=== PATIENT | female | born 1935 | race Caucasian/White ===

== ENCOUNTER → 2024-06-21 15:38 | Outpatient (REF) | payer OTHER, SELFPAY | LOC: RAD 15:38 | PROVIDERS: ATTENDING PHYSICIAN Internal Medicine; FAMILY PHYSICIAN Internal Medicine | DX: M48.062 Spinal stenosis, lumbar region with neurogenic claudication (principal) | CPT/HCPCS: 72100 ==

== ENCOUNTER → 2024-07-10 15:16 | Outpatient (REF) | payer OTHER, SELFPAY | LOC: PAVMRI 15:16 | PROVIDERS: ATTENDING PHYSICIAN Internal Medicine; FAMILY PHYSICIAN Internal Medicine | DX: M48.062 Spinal stenosis, lumbar region with neurogenic claudication (principal) | CPT/HCPCS: 72148 ==

== ENCOUNTER 2024-09-15 17:33 | Emergency (ER) | payer OTHER, SELFPAY ==
[2024-09-15 17:46] VITALS: BP 124/59
[2024-09-15 19:38] VITALS: BP 121/66
[2024-09-15 19:39] VITALS: BMI 36.1
[2024-09-15 20:00] VITALS: BP 104/73
[2024-09-15 20:08] LABS: Urine Albumin 3+ (Neg - Trace); Urine Bilirubin Negative (Negative); Urine Character Slightly Cloudy (Clear); Urine Color Yellow; Urine Glucose Negative (Negative); Urine Ketone 1+ (Negative); Urine Leukocyte 3+ (Negative); Urine Nitrite Negative (Negative); Urine Occult Blood 4+ (Negative); Urine Urobilinogen Negative (Neg - 1+)
[2024-09-15 20:23] LABS: Urine Squamous Cell 0-2 /LPF (Few)
[2024-09-15 20:24] LABS: Urine Bacteria Many (Negative); Urine Red Blood Cell 21-25 /HPF (0-2); Urine White Cell >100 /HPF (0-5)
--- NOTE | 2024-09-15 20:47 | ED.GENMED ---
History of Present Illness
General
Chief Complaint: Urinary Symptoms
Source: patient
Exam Limitations: none
Time Seen by Provider: 09/15/24 18:52
History of Present Illness
History of Present Illness:
Patient to ED with complaint of painful urination x 4 days. Brought to ED by daughter for eval. Denies fever/chills. History of frequent UTi's
Past History
Past History
ED Past Medical History: GERD, HTN, Hypercholesterolemia, NIDDM and Other (History of neck and back pain, hiatal hernia, irritable bowel syndrome, diverticulosis, loss of urination control, arthritis)
ED Past Surgical History: Bowel resection (Colon resection for GI bleed) and Orthopedic (Right knee replacement, laminectomy with fusion, left carpal tunnel surgery)
Social History
Tobacco: Non-smoker
Alcohol: None
Personal:
Living: with family
Employment: Retired
Family History
Family History: Unable to obtain
Review of Systems
Review of Systems
Allergies reviewed?: Yes
All Other Systems: ROS reviewed and negative except as documented in HPI and ROS
Constitutional: Reports no symptoms
EENT: Reports no symptoms
Respiratory: Reports no symptoms
Cardiac: Reports no symptoms
ABD/GI: Reports no symptoms
: Reports dysuria and frequency
Musculoskeletal: Reports no symptoms
Skin: Reports no symptoms
Neurological: Reports no symptoms
Psychiatric: Reports no symptoms
Phy Exam
General Physical Exam
General Presentation: well appearing and no apparent distress
General age: appears stated age
General Skin: warm and dry
General Habitus: normal
Gastrointestinal Exam
Gastrointestinal Exam: non tender, soft and no organomegaly
Musculoskeletal Exam
Musculoskeletal Exam: full ROM and neuro vasc intact
Skin Exam
Skin Exam: normal color, warm/dry and no rash
Psychiatric Exam
Psychiatric Exam: normal mood/affect
Course
Orders/Labs/Results
Orders:
Orders
09/15/24 19:38
Urinalysis Reflex To Culture Urgent
Date Specimen was Collected: 09/15/24
Time Specimen was Collected: 19:24
Urine Microscopic Reflex Cult Urgent
Urine Culture Urgent
TEJAS Source: U
Specimen Description:
Date Specimen was Collected: 09/15/24
Time Specimen was Collected: 19:24
09/15/24 20:42
Amoxicillin 875 mg/Clav 125 mg [Augmentin 875 mg/125 mg] 1 tablet PO NOW STA
Abnormal Lab Results
09/15/24
19:38
Urine Ketones 1+ A
(Negative)
Ur Occult Blood Reflex 4+ A
(Negative)
Leukocyte Esterase Rfl 3+ A
(Negative)
Urine RBC 21-25 A /HPF
(0-2)
Urine WBC (Reflex) >100 A /HPF
(0-5)
Urine Bacteria (Reflex) Many A
(Negative)
Urine Albumin (Reflex) 3+ A
(Neg - Trace)
Vital Signs
Initial and Last Documented VS:
Initial Vital Signs
Temp Pulse Resp BP Pulse Ox
98.1 F 96 20 124/59 98
09/15/24 17:46 09/15/24 17:46 09/15/24 17:46 09/15/24 17:46 09/15/24 17:46
Last Documented Vital Signs
Temp Pulse Resp BP Pulse Ox
98.1 F 97 17 124/59 94
09/15/24 17:46 09/15/24 19:38 09/15/24 19:38 09/15/24 17:46 09/15/24 19:38
*Critical Care Note
Total Time (30-74mins, 75-104mins- exclusive of procedures): Not Applicable
Update Note
Update Note:
UA reflecting UTI. Afebrile. No abdominal or back pain. Will place on Augmenting. Dose given in ED. SHe remains awake and alert, non toxic appearing. WIll discharge home and she will follow up with PCP on Wednesday. Given instructions on s/s to
retur to ED and she is agreeable to plan.
ED Attending Note
-
Portions of this chart may have been created with voice recognition software.� Occasional wrong word or��sound alike� substitutions may have occurred due to the inherent limitations of voice recognition software.
Discharge Plan
Departure
Patient Disposition: Home (Routine Discharge)
Date of Disposition: 09/15/24
Time of Disposition: 20:43
Patient with high blood pressure during this ER visit?: No
Condition: Good
Covid-19: Not Applicable
Discharge Problem:
Urinary tract infection
Instructions: Urinary Tract Infection, Adult (DC)
Prescriptions:
New
amoxicillin-pot clavulanate 875-125 mg tablet
1 tab PO BID Qty: 14 0RF
No Action
coenzyme [id number] E [Co Q-10 (with Vit E)] 1 EACH capsule
1 cap PO HS
simvastatin 40 MG tablet
40 mg PO HS
ascorbic acid (vitamin C) [Vitamin C] 500 MG tablet
500 mg PO BID
gabapentin 300 MG capsule
600 mg PO TID
azelastine 1 SPRAY aerosol,spray
1 spray intranasal BIDPRN PRN (Reason: CONGESTION)
fluticasone propionate 1 SPRAY spray,suspension
1 spray intranasal HS
Saccharomyces boulardii 250 MG capsule
500 mg PO BID
insulin asp prt-insulin aspart [Novolog Mix 70-30FlexPen U-100] 300 UNITS/3 ML insulin pen
40 units SC BID@0800,1830
loperamide 2 MG capsule
2 mg PO Q4HPRN PRN (Reason: diarrhea)
prochlorperazine maleate 10 MG tablet
10 mg PO DAILY PRN (Reason: nausea)
spironolactone 50 MG tablet
150 mg PO DAILY
polyvinyl alcohol-povidon(PF) [Refresh Classic (PF)] 10 DROPS dropperette
1 drops BOTH EYES PRN PRN (Reason: dry eyes)
duloxetine 60 MG capsule,delayed release(DR/EC)
60 mg PO DAILY
cholecalciferol (vitamin D3) 2,000 UNITS tablet
2,000 units PO DAILY
white petrolatum [Hydrophor] 1 APPLIC ointment
1 applic topical DAILYPRN PRN (Reason: arms and feet-dry)
acetaminophen 325 MG tablet
650 mg PO Q4HPRN PRN (Reason: mild pain/FELICIANO/temp> 100.4F) 0RF
Calazime Ointment
1 applic topical PRN PRN (Reason: reddened/irritated skin)
Slow Mag
2 tab PO BID
polyethylene glycol 3350 17 GRAMS powder in packet
17 grams PO DAILYPRN PRN (Reason: constipation) Qty: 1 0RF
ibuprofen 200 MG tablet
400 mg PO Q6HPRN PRN (Reason: moderate pain) Qty: 1 0RF
amoxicillin-pot clavulanate 875-125 mg tablet
1 tab PO BID Qty: 14 0RF
Referrals:
Devin Ennis DO [Family Provider] -
Activity Restrictions/Additional Instructions:
Follow up with your family doctor on Wednesday. Return to the emergency department immediately for any changes in/worsening of your symptoms.
Interventions
Interventions:
*Risk Screen - Suicide Last Done: 09/15/24 19:39
*General Assessment Last Done: 09/15/24 17:46
*Neglect/Abuse Screening Last Done: 09/15/24 19:39
*ED COVID-19 Vaccine History Last Done: 09/15/24 19:39
Discharge Date and Time
Print Language: MONGOLIAN
[2024-09-15] MEDS: AUGMENTIN 875 MG/125 MG 1 TABLET PO (21:10)
== END 2024-09-15 21:43 | disposition home or self-care (01) ==
LOC: EMR 17:33
PROVIDERS: Nurse Practitioner; EMERGENCY PHYSICIAN Emergency Medicine; FAMILY PHYSICIAN Internal Medicine
DX: N39.0 Urinary tract infection, site not specified (principal); I10 Essential (primary) hypertension; E78.00 Pure hypercholesterolemia, unspecified; E11.9 Type 2 diabetes mellitus without complications; K21.9 Gastro-esophageal reflux disease without esophagitis
CPT/HCPCS: 99283; 81003; 81015; 87086

== ENCOUNTER 2025-02-12 23:32 | Inpatient (IN) | payer OTHER, SELFPAY ==
[2025-02-12] VITALS (11 sets, daily range): BP systolic 112–172; BP diastolic 62–103; BMI 39.4
[2025-02-12 14:36] LABS: Hematocrit 39.3 % (37.0-47.0); Hemoglobin 13.3 g/dL (12.0-16.0); Mean Corp Hgb Conc. 33.8 g/dL (33.0-37.0); Mean Corpuscular Volume 95.4 fL (81.0-99.0); Nucleated Red Blood Cells % 0 %; Red Cell Dist. Width 13.2 % (11.5-14.5)
[2025-02-12 14:51] LABS: Platelet Count 164 10^3/uL (130-400)
[2025-02-12 14:57] LABS: ALT (SGPT) 11 U/L (0-35); AST (SGOT) 26 U/L (14-36); Albumin 3.6 g/dl (3.5-5.0); Alkaline Phosphatase 62 U/L (38-126); Blood Urea Nitrogen 9 mg/dl (7-17); Calcium 8.8 mg/dl (8.4-10.2); Carbon Dioxide 22 mmol/L (22-30); Chloride 106 mmol/L (98-107); Glucose 228 mg/dl (70-99); Potassium 3.9 mmol/L (3.5-5.1); Sodium 135 mmol/L (135-145); Total Protein 7.0 g/dl (6.3-8.2); eGFR > 60.00
[2025-02-12 15:08] LABS: Troponin I 0.020 ng/ml
--- NOTE | 2025-02-12 16:56 | EDRN ---
Pt arrives for HTN w/ high BP, dizziness, L hand and foot swelling, buring on urination. Pt also has been having diarrhea for last 2-3 weeks.
--- NOTE | 2025-02-12 17:07 | EDRN ---
Dr. Javier in room w/ pt at this time.
--- NOTE | 2025-02-12 17:57 | ED.GENMED ---
History of Present Illness
General
Chief Complaint: Blood Pressure Problem
Source: patient
Exam Limitations: none
Time Seen by Provider: 02/12/25 16:43
History of Present Illness
History of Present Illness:
89-year-old female presents with lightheadedness weakness this morning. Also some nausea. Some fatigue. Has diarrhea but this is ongoing. No chest pain shortness of breath unusual headache or acute neurologic symptoms. Symptoms started earlier
today
Past History
Past History
ED Past Medical History: GERD, HTN, Hypercholesterolemia, NIDDM and Other (History of neck and back pain, hiatal hernia, irritable bowel syndrome, diverticulosis, loss of urination control, arthritis)
ED Past Surgical History: Bowel resection (Colon resection for GI bleed) and Orthopedic (Right knee replacement, laminectomy with fusion, left carpal tunnel surgery)
Social History
Tobacco: Non-smoker
Alcohol: None
Personal:
Living: with family
Employment: Retired
Family History
Family History: Unable to obtain
Review of Systems
Review of Systems
All Other Systems: Not applicable
Constitutional: Denies fever or chills
Respiratory: Denies trouble breathing
Cardiac: Denies chest pain
Phy Exam
Physical Exam
Physical Exam:
GENERAL: Alert and oriented in no apparent distress
EYE: Orbits normal.
NECK: Supple, no significant adenopathy.
CARDIAC: Borderline tachycardic and regular no murmurs
LUNGS: Clear breath sounds,normal
ABDOMEN: Soft, without focal tenderness or distention
NEUROLOGICAL: Alert and oriented , grossly non-focal
SKIN: Warm and dry, no rash or lesion, no discoloration, skin intact.
MUSCULOSKELETAL: Very mild swelling of the left arm and left leg. Nonspecific in nature. No warmth or erythema. No cord. Good distal pulses
PSYCH: Normal and appropriate interaction.
Course
Orders/Labs/Results
Orders:
Orders
02/12/25 14:11
ECG [Electrocardiogram (*1)] Urgent
Reason for Study: Fatigue / Weakness
02/12/25 14:12
EKG- Treatment ONCE
02/12/25 14:21
Complete Blood Count/With Diff Urgent
Comprehensive Metabolic Panel Urgent
Troponin I Urgent
02/12/25 17:13
CXR2 [CR Chest - 2 Views ] Urgent
Comment:
Reason For Exam: weak
02/12/25 17:17
Straight cath- Treatment ONCE
02/12/25 17:20
EKG [Electrocardiogram (*1)] Urgent
Reason for Study: Tachycardia
EKG- Treatment ONCE
02/12/25 17:48
Lidocaine 2% [Lidocaine Uro-Jet 2%] 1 syringe .ROUTE .[facility]
02/12/25 18:05
Urinalysis Reflex To Culture Urgent
Date Specimen was Collected: 02/12/25
Time Specimen was Collected: 18:03
Urine Microscopic Reflex Cult Urgent
Urine Culture Urgent
TEJAS Source: U
Specimen Description:
Date Specimen was Collected: 02/12/25
Time Specimen was Collected: 18:03
02/12/25 18:08
US Periph Venous LOWER Ext LT Urgent
Comment:
Reason For Exam: swelling
US Periph Venous UPPER Ext LT Urgent
Comment:
Reason For Exam: swelling
02/12/25 20:23
CefTRIAXone [Rocephin] 1,000 mg IV NOW STA
02/12/25 20:24
0.9% Sodium Chloride 500 ml [Nss] 500 ml IV BOLUS
02/12/25 20:30
Blood Culture Q30M
TEJAS Source: Blood/Venous
Specimen Description:
02/12/25 21:00
Blood Culture Q30M
TEJAS Source: Blood/Venous
Specimen Description:
Abnormal Lab Results
02/12/25 02/12/25
14:21 18:05
RBC 4.12 L 10^6/uL
(4.20-5.40)
MCH 32.3 H pg
(27.0-31.0)
MPV 10.6 H fL
(7.4-10.4)
Lymphocytes % 18.0 L %
(20.5-51.1)
Glucose 228 H mg/dl
(70-99)
Urine Ketones 2+ A
(Negative)
Ur Occult Blood Reflex 4+ A
(Negative)
Leukocyte Esterase Rfl 3+ A
(Negative)
Urine WBC (Reflex) >100 A /HPF
(0-5)
Urine Bacteria (Reflex) Many A
(Negative)
Urine Albumin (Reflex) 3+ A
(Neg - Trace)
02/12/25 14:21
02/12/25 14:21
Vital Signs
Initial and Last Documented VS:
Initial Vital Signs
Temp Pulse Resp BP Pulse Ox
98.0 F 116 20 138/81 95
02/12/25 14:08 02/12/25 14:08 02/12/25 14:08 02/12/25 14:08 02/12/25 14:08
Last Documented Vital Signs
Temp Pulse Resp BP Pulse Ox
98.0 F 106 20 147/62 97
02/12/25 14:08 02/12/25 20:00 02/12/25 20:00 02/12/25 20:00 02/12/25 20:00
MDM/Problems Addressed
Differential Diagnosis Includes:
Patient is clinically nontoxic and stable and in no distress. Nonfocal exam. Nothing clinically to support infection. Urinalysis pending. Labs are stable. Questionable swelling of the left arm and left leg... Doubt thrombotic issue but will get
ultrasound. EKG is questionable atrial fibrillation. Doubt atrial flutter. Medically stable and nontoxic.
*Radiology
Radiology exam reviewed: radiology read reviewed (Small pleural effusion. Negative arm and leg ultrasound)
*Pulse Oximetry
SaO2: 95
Oxygen Mode of Delivery: Room air
Patient hypoxic: no
*EKG
Interpreted by ED Provider?: Yes
Interpretation: abnormal
Comparison EKG: changes noted
Heart Rate: 111
Rate: tachycardiac
Rhythm: other (Questionable atrial fibrillation versus sinus tach)
Irwin: normal axis
Interval: normal interval
QRS Pattern: normal QRS
Ischemia: non-specific ST changes
*Critical Care Note
Total Time (30-74mins, 75-104mins- exclusive of procedures): Not Applicable
Data Reviewed
Review of Other/Old Records Reveals: Labs, Records and Testing
Update Note
Update Note:
Repeat EKG undetermined rhythm at 100.
Patient generally weak. UTI. Still remains in a mildly tachycardic rhythm difficult to tell whether this is sinus tach vs slow a flutter. Will admit for monitoring antibiotics fluids.
ED Attending Note
-
Portions of this chart may have been created with voice recognition software.� Occasional wrong word or��sound alike� substitutions may have occurred due to the inherent limitations of voice recognition software.
Discharge Plan
Departure
Patient Disposition: Admit
Date of Disposition: 02/12/25
Time of Disposition: 20:26
Presentation/result/management discussed w/ accepting MD/DO: Hospitalist
Discharge Problem:
UTI/weakness, Sinus tach versus atrial fibrillation
Prescriptions:
No Action
coenzyme [id number] E [Co Q-10 (with Vit E)] 1 EACH capsule
1 cap PO HS
simvastatin 40 MG tablet
40 mg PO HS
ascorbic acid (vitamin C) [Vitamin C] 500 MG tablet
500 mg PO BID
gabapentin 300 MG capsule
600 mg PO TID
azelastine 1 SPRAY aerosol,spray
1 spray intranasal BIDPRN PRN (Reason: CONGESTION)
fluticasone propionate 1 SPRAY spray,suspension
1 spray intranasal HS
Saccharomyces boulardii 250 MG capsule
500 mg PO BID
insulin asp prt-insulin aspart [Novolog Mix 70-30FlexPen U-100] 300 UNITS/3 ML insulin pen
40 units SC BID@0800,1830
loperamide 2 MG capsule
2 mg PO Q4HPRN PRN (Reason: diarrhea)
prochlorperazine maleate 10 MG tablet
10 mg PO DAILY PRN (Reason: nausea)
spironolactone 50 MG tablet
150 mg PO DAILY
polyvinyl alcohol-povidon(PF) [Refresh Classic (PF)] 10 DROPS dropperette
1 drops BOTH EYES PRN PRN (Reason: dry eyes)
duloxetine 60 MG capsule,delayed release(DR/EC)
60 mg PO DAILY
cholecalciferol (vitamin D3) 2,000 UNITS tablet
2,000 units PO DAILY
white petrolatum [Hydrophor] 1 APPLIC ointment
1 applic topical DAILYPRN PRN (Reason: arms and feet-dry)
acetaminophen 325 MG tablet
650 mg PO Q4HPRN PRN (Reason: mild pain/FELICIANO/temp> 100.4F) 0RF
Calazime Ointment
1 applic topical PRN PRN (Reason: reddened/irritated skin)
Slow Mag
2 tab PO BID
polyethylene glycol 3350 17 GRAMS powder in packet
17 grams PO DAILYPRN PRN (Reason: constipation) Qty: 1 0RF
ibuprofen 200 MG tablet
400 mg PO Q6HPRN PRN (Reason: moderate pain) Qty: 1 0RF
amoxicillin-pot clavulanate 875-125 mg tablet
1 tab PO BID Qty: 14 0RF
amoxicillin-pot clavulanate 875-125 mg tablet
1 tab PO BID Qty: 14 0RF
Referrals:
Devin Ennis, DO [Family Provider]
Interventions
Interventions:
*Risk Screen - Suicide Last Done: 02/12/25 16:50
*General Assessment Last Done: 02/12/25 16:51
*Neglect/Abuse Screening Last Done: 02/12/25 16:50
*ED- Fall Risk Assessment Last Done: 02/12/25 16:50
*ED COVID-19 Vaccine History Last Done: 02/12/25 16:50
ED- Cardiac Assessment Last Done: 02/12/25 17:01
ED- Neurological Assessment Last Done: 02/12/25 17:01
ED- Pulmonary Assessment Last Done: 02/12/25 17:01
Discharge Date and Time
Print Language: SCOTTISH
[2025-02-12 18:17] LABS: Urine Character Cloudy (Clear)
[2025-02-12 19:27] LABS: Urine White Cell >100 /HPF (0-5)
[2025-02-12 20:30] LABS: Glucose - Point of Care 168 mg/dl (70-99)
[2025-02-12] MEDS: ROCEPHIN 1000 MG IV (21:21)
[2025-02-12] MEDS: NSS 500 IV (21:22)
--- NOTE | 2025-02-12 23:14 | HPS.HSE ---
Family Physician
-
Family Physician: Devin Ennis, DO
Chief Complaint
-
Dizziness
History of Present Illness
89-year-old female with HTN, GERD, HLD, DM 2 presents with dizziness and lightheadedness, nausea today when sitting upright from a laying position. Notes last night she had diaphoresis and anxiety. Her daughter is at bedside and corroborates the
story, noticed that she has been unwell for the last 3 weeks or so with increased diarrhea. Patient denies palpitations, chest pain, shortness of breath, vision changes, headache, fevers, chills, vomiting, or abdominal pain.
Medical History
Past Medical History
Past Medical History: Reports Other ( GERD, HTN, Hypercholesterolemia, NIDDM, History of neck and back pain, hiatal hernia, irritable bowel syndrome, diverticulosis, loss of urination control, arthritis)
Past Surgical History: Reports Other
Additional Past Surgical History:
Bowel resection (Colon resection for GI bleed) and Orthopedic (Right knee replacement, laminectomy with fusion, left carpal tunnel surgery)
Social History
Tobacco: Non-smoker
Alcohol: None
Drug: None
Living: Longterm
Family History
Family History: Not pertinent
Allergies / Home Medications
Allergies reflects when Allergies were last updated in [facility].
Home Medications with original date entered in [facility]
Allergy/Medication List:
Allergies
Allergy/AdvReac Type Severity Reaction Status Date / Time
ciprofloxacin Allergy Swelling Verified 02/12/25 14:08
hydrocodone Allergy Swelling Verified 02/12/25 14:08
Quinolones Allergy Pharmacy Verified 02/12/25 14:08
to Review
Home Medications
simvastatin 40 mg tablet 40 mg PO HS 12/17/15
Calazime Ointment 1 applic topical PRN PRN anel-rectal area 01/05/20
Saccharomyces boulardii 250 mg capsule (Florastor) 250 mg PO BID 02/12/25
acetaminophen 325 mg tablet 650 mg PO Q4HPRN PRN mild pain 02/12/25
ascorbic acid (vitamin C) 500 mg tablet (Vitamin C) 500 mg PO BID 02/12/25
azelastine 137 mcg (0.1 %) nasal spray 1 spray intranasal BID 02/12/25
cetirizine 10 mg tablet 10 mg PO DAILY 02/12/25
cholecalciferol (vitamin D3) 50 mcg (2,000 unit) capsule 50 mcg PO DAILY 02/12/25
cholestyramine 4 gram oral powder for suspension in a packet 4 g PO BID 02/12/25
coQ10 (ubiquinol) 200 mg capsule 200 mg PO HS 02/12/25
colestipol 1 gram tablet 1 g PO AC 02/12/25
cranberry 500 mg capsule 1,000 mg PO DAILY 02/12/25
dextromethorphan-guaifenesin 5 mg-100 mg/5 mL oral liquid (Mucinex Fast-Max DM Max) 20 ml PO Q4HPRN PRN congestion 02/12/25
diphenhydramine HCl 25 mg capsule (Benadryl) 25 mg PO Q6HPRN PRN allergies 02/12/25
dulaglutide 0.75 mg/0.5 mL subcutaneous pen injector (Trulicity) 0.75 mg SC FR Neurological Condition 02/12/25
duloxetine 60 mg capsule,delayed release sprinkle 60 mg PO DAILY 02/12/25
fluticasone propionate 50 mcg/actuation nasal spray,suspension 1 spray intranasal HS 02/12/25
furosemide 20 mg tablet (Lasix) 20 mg PO MOWEFR 02/12/25
insulin NPH-regular 70-30 U-100 insulin 100 unit/mL subcutaneous pen (Humulin 70/30 U-100 KwikPen) 30 unit SC DAILY 02/12/25
insulin NPH-regular 70-30 U-100 insulin 100 unit/mL subcutaneous pen (Humulin 70/30 U-100 KwikPen) 40 unit SC QPM 02/12/25
insulin lispro 100 unit/mL subcutaneous pen (Humalog KwikPen (U-100) Insulin) 0 sliding scale dose SC DIRECTED 02/12/25
lidocaine 4 % topical patch 1 patch topical DAILY apply to lower back 02/12/25
loperamide 2 mg tablet (Imodium A-D) 2 mg PO Q6HPRN PRN diarrhea 02/12/25
menthol-aloe vera extract 16 % topical gel ([employer]) 1 ea topical HS apply to back of neck 02/12/25
methenamine hippurate 1 gram tablet 1 g PO BID 02/12/25
mineral oil-hydrophil petrolat topical ointment 1 applic topical PRN PRN dry skin 02/12/25
nystatin 100,000 unit/gram topical powder 1 applic topical PRN PRN fungal rash 02/12/25
ondansetron 4 mg disintegrating tablet 4 mg PO Q8HPRN PRN nausea/vomiting 02/12/25
polyethylene glycol 3350 17 gram oral powder packet (Miralax) 17 g PO DAILYPRN PRN constipation 02/12/25
pregabalin 25 mg capsule (Lyrica) 25 mg PO DAILY 02/12/25
pregabalin 50 mg capsule (Lyrica) 50 mg PO BID 02/12/25
spironolactone 25 mg tablet 25 mg PO DAILY 02/12/25
vitamin B complex 1 tab PO DAILY 02/12/25
Review of Systems
-
A 12 point ROS was completed and negative except as noted: Yes
Physical Exam
Vital Signs
Vital Signs
Temp Pulse Resp BP Pulse Ox
98.0 F 106 20 147/62 97
02/12/25 14:08 02/12/25 20:00 02/12/25 20:00 02/12/25 20:00 02/12/25 20:00
Physical Exam
General: No Apparent Distress
HEENT: Moist mucous membranes and PERRLA
Respiratory: Clear; No Wheezes, Rales or Rhonchi
Cardiac: S1/S2 and Regular Rhythm; No Murmur, Rub or Gallop
GI: Soft, Non Tender, Non Distended and Normal Bowel Sounds
Musculoskeletal: No Edema
Skin: Warm and Dry
Neuro: Awake, Alert and Oriented
Psych: Calm
Laboratory Results
-
02/12/25 14:21
02/12/25 14:21
Laboratory Results
Total Bilirubin 1.1 mg/dl (0.2-1.3) 02/12/25 14:21
AST 26 U/L (14-36) 02/12/25 14:21
ALT 11 U/L (0-35) 02/12/25 14:21
Alkaline Phosphatase 62 U/L (38-126) 02/12/25 14:21
Troponin I 0.020 ng/ml 02/12/25 14:21
EKG reviewed possibly A-fib with PVCs at 94 bpm. Compared to previous which was normal sinus rhythm
Data Reviewed
-
Diagnostic Radiology: Report Reviewed by me
Lab Data: Labs Reviewed by me
Old Records: Reviewed ([facility] record)
Impression/Plan
-
IMPRESSION:
89-year-old female with HTN, GERD, HLD, DM 2 presents with presyncope, found to have UTI and possible arrhythmia.
PLAN:
UTI:
UA with greater than 100 WBC, 3+ LE
Reviewed previous culture data patient had Klebsiella most recently in urine, also in remote past Citrobacter, also E. coli.
Blood culture pending urine culture pending
Empiric ceftriaxone
Arrhythmia:
EKG appears to be A-fib with PVCs
Monitor on telemetry and repeat EKG in a.m.
If confirmed can consult cardiology
Unclear if this contributed to her presyncope
HTN:
BP elevated continue home BP meds Lasix and spironolactone and adjust as needed
DM 2:
Uncontrolled, BG elevated
Continue with mixed 70/30 and Trulicity is q. Wednesday
Patient takes 40 units in a.m. and 30 units in p.m., add sliding scale insulin as well
A1c
Chronic pain: Continue Lyrica and duloxetine
Diarrhea: continue colestiple
DVT PPx Lovenox
Full code
[2025-02-13] VITALS (11 sets, daily range): BP systolic 103–149; BP diastolic 52–99; PULSE 98; O2SAT 95; BMI 38.4
--- NOTE | 2025-02-13 02:36 | PTCARENOTE ---
Received pt from ER,pt tolerated transfer well.Physical assessment preformed pt denies pain at present,VS stable,afebrile.Pt incontinent x2,states she has trouble.Sleeping after assessment.
[2025-02-13] MEDS: TYLENOL 650 MG PO (04:03)
[2025-02-13 07:38] LABS: Hematocrit 35.3 % (37.0-47.0); Hemoglobin 11.8 g/dL (12.0-16.0); Mean Corp Hgb Conc. 33.4 g/dL (33.0-37.0); Mean Corpuscular Volume 98.3 fL (81.0-99.0); Platelet Count 188 10^3/uL (130-400); Red Cell Dist. Width 13.2 % (11.5-14.5)
[2025-02-13 08:26] LABS: Blood Urea Nitrogen 10 mg/dl (7-17); Calcium 8.3 mg/dl (8.4-10.2); Carbon Dioxide 26 mmol/L (22-30); Chloride 105 mmol/L (98-107); Estimated Creatinine Clearance 49 ml/min; Glucose 154 mg/dl (70-99); Potassium 3.4 mmol/L (3.5-5.1); Sodium 138 mmol/L (135-145); eGFR > 60.00
[2025-02-13 08:27] LABS: Glucose - Point of Care 161 mg/dl (70-99)
[2025-02-13] MEDS: CYMBALTA DELAYED RELEASE 60 MG PO (08:27)
[2025-02-13] MEDS: VITAMIN C 500 MG PO ×2 (08:28→20:07)
[2025-02-13] MEDS: ALDACTONE 25 MG PO (08:28)
[2025-02-13] MEDS: LYRICA 25 MG PO (08:28)
[2025-02-13] MEDS: VITAMIN D3 (cholecalciferol) 50 MCG PO (08:28)
[2025-02-13] MEDS: ZYRTEC 10 MG PO (08:28)
[2025-02-13] MEDS: B COMPLEX w/VITAMIN C 1 CAPLET PO (08:28)
[2025-02-13] MEDS: QUESTRAN 4 GRAM PO ×2 (08:29→20:08)
[2025-02-13] MEDS: KCL 40 MEQ PO (09:47)
[2025-02-13] MEDS: NOVOLOG MIX 70/30 FLEXPEN 30 UNITS SC ×2 (09:47→17:33)
[2025-02-13] MEDS: NOVOLOG FLEXPEN-MODERATE RESISTANCE 1 UNITS SC ×2 (09:48→17:33)
[2025-02-13 09:53] LABS: Glycohemoglobin (HgbA1c) 6.4 % (4.0-5.6)
[2025-02-13] MEDS: ZOFRAN 4 MG IV (10:35)
--- NOTE | 2025-02-13 12:14 | CM ---
CM reviewed chart, patient seen bedside, initial assessment completed. [facility] Patient reports using a walker for ambulation, WC for longer distances. Patient reports she was receiving therapy services
in the past. PCP Devin Ennis, pharmacy [facility], will confirm pharmacy with facility- call left for liaison at [facility] to confirm patient is LTC, inquire if patient will need auth to return. Referral placed in [facility]. CM will
continue to follow for all discharge planning needs.
Plan; return to [facility], awaiting facility if patient will need auth for return
--- NOTE | 2025-02-13 12:41 | CON.CAR ---
Addendum entered and electronically signed by Cash Castillo MD 02/13/25 15:44:
Patient seen and examined
agree with LEXY Parrish's notes and assessment
telemetry reviewed-atrial fibrillation
exam:
heent ncat
jvp 6
cor irregularly irregular
lungs ctab
abds soft
no ext edema
aao x 3
Impression:
Presented 02/12/2025 with lightheaded/dizziness, nausea and intermittent diarrhea
UTI
Paroxysmal atrial fibrillation
Hypokalemia
Hypertension
Hyperlipidemia
Type 2 diabetes
Esophageal stricture
GERD/hiatal hernia
Diverticular bleed with bowel resection 2019
Echo 02/13/2025: Ordered
Echo 08/05/2022: EF 60 to 65%. Mild pulmonary insufficiency otherwise normal thoracic echocardiogram.
Plan:
- initiate oral anticoagulation
- Presented 02/12/2025 with lightheaded/dizziness, nausea and intermittent diarrhea.
- Found to have UTI and is now on antibiotics.
- Urine and blood cultures pending. Afebrile with normal white count
- Noted to be tachycardic on arrival. EKG demonstrates atrial fibrillation. This was reviewed with electrophysiology who confirms.
- Add low-dose beta-kirstie for rate control.
- Per patient she is uses a walker in her room and generally is wheeled around her facility. She denies falls or bleeding issues. Talked w/ daughter Debra who confirms no falls. They are agreeable to starting Eliquis.
- Replete potassium as K+ currently 3.4,
- Add on magnesium level and TSH level
- Check echocardiogram
Original Note:
Consultation
Consultation Request
Date/Time Consultation Requested: 02/13/2025
Date/Time Consultation Performed: 02/13/2025
Requesting Provider: Dr. Malone
Performing Provider: Mary Parrish PA-C for Dr. Castillo
Reason for Consultation: Tachycardia, irregular heart rhythm
Medical History
-
History of Present Illness:
Patient is an 89-year-old female with past medical history significant for hypertension, hyperlipidemia, type 2 diabetes, esophageal stricture, GERD/hiatal hernia, diverticular bleed with bowel resection who presents to emergency department
02/12/2025 from [facility] with lightheadedness, weakness, fatigue associated with intermittent nausea and diarrhea for several days. Patient was found to have UTI on admission and now on antibiotic. Urine and blood culture pending. White count
was normal and patient has been afebrile. She was noted to be tachycardic on arrival. ECG demonstrated atrial fibrillation prompting cardiology consult. This appears to be new diagnosis.
Patient reports she ambulates with a walker around her room. She generally is wheeled around the nursing facility. She denies falls or bleeding issues.
Past medical history:
Hypertension
Hyperlipidemia
Type 2 diabetes
Esophageal stricture
GERD/hiatal hernia
Diverticular bleed with bowel resection 2019
Past Medical History
Past Medical History: Other (See HPI)
Past Surgical History: Bowel Resection (Colon resection for diverticular/lower GI bleed) and Orthopedic (Right knee replacement, laminectomy with fusion, carpal tunnel surgery)
Social History
Tobacco: Non-Smoker
Alcohol: None
Drug: None
Living: [facility]
Family History
Family History: Other (Mother had diabetes and pancreatic cancer)
Allergies / Home Medications
Allergy/AdvReac Type Severity Reaction Status Date / Time
ciprofloxacin Allergy Swelling Verified 02/12/25 14:08
hydrocodone Allergy Swelling Verified 02/12/25 14:08
Quinolones Allergy Pharmacy Verified 02/12/25 14:08
to Review
�Medication �Instructions �Recorded �Confirmed �Type
simvastatin 40 mg tablet 40 mg PO HS High Cholesterol 12/17/15 02/13/25 History
Calazime Ointment 1 applic topical DAILYPRN PRN 01/05/20 02/13/25 History
anel-rectal area
Saccharomyces boulardii 250 mg 250 mg PO BID Supplement 02/12/25 02/13/25 History
capsule (Florastor)
acetaminophen 325 mg tablet 650 mg PO Q4HPRN PRN mild pain 02/12/25 02/13/25 History
ascorbic acid (vitamin C) 500 mg 500 mg PO BID Supplement 02/12/25 02/13/25 History
tablet (Vitamin C)
azelastine 137 mcg (0.1 %) nasal 1 spray intranasal BID Congestion 02/12/25 02/13/25 History
spray
cetirizine 10 mg tablet 10 mg PO DAILY Allergies 02/12/25 02/13/25 History
cholecalciferol (vitamin D3) 50 50 mcg PO DAILY Supplement 02/12/25 02/13/25 History
mcg (2,000 unit) capsule
cholestyramine 4 gram oral powder 4 g PO BID Gastrointestinal Issue 02/12/25 02/13/25 History
for suspension in a packet
coQ10 (ubiquinol) 200 mg capsule 200 mg PO HS Supplement 02/12/25 02/13/25 History
colestipol 1 gram tablet 1 g PO AC Gastrointestinal Issue 02/12/25 02/12/25 History
dextromethorphan-guaifenesin 5 20 ml PO Q4HPRN PRN congestion 02/12/25 02/13/25 History
mg-100 mg/5 mL oral liquid
(Mucinex Fast-Max DM Max)
diphenhydramine HCl 25 mg capsule 25 mg PO Q6HPRN PRN allergies 02/12/25 02/13/25 History
(Benadryl)
dulaglutide 0.75 mg/0.5 mL 0.75 mg SC FR Neurological 02/12/25 02/13/25 History
subcutaneous pen injector Condition
(Trulicity)
duloxetine 60 mg capsule,delayed 60 mg PO DAILY Mental 02/12/25 02/13/25 History
release sprinkle Health/Anxiety
fluticasone propionate 50 1 spray intranasal HS Congestion 02/12/25 02/13/25 History
mcg/actuation nasal
spray,suspension
furosemide 20 mg tablet (Lasix) 20 mg PO MOWEFR Fluid 02/12/25 02/13/25 History
Retention/Swelling
insulin NPH-regular 70-30 U-100 30 unit SC DAILY Diabetes 02/12/25 02/13/25 History
insulin 100 unit/mL subcutaneous
pen (Humulin 70/30 U-100 KwikPen)
insulin NPH-regular 70-30 U-100 40 unit SC QPM Diabetes 02/12/25 02/12/25 History
insulin 100 unit/mL subcutaneous
pen (Humulin 70/30 U-100 KwikPen)
insulin lispro 100 unit/mL 0 sliding scale dose SC 02/12/25 02/13/25 History
subcutaneous pen (Humalog KwikPen DIRECTED Diabetes
(U-100) Insulin)
lidocaine 4 % topical patch 1 patch topical DAILY apply to 02/12/25 02/13/25 History
lower back
loperamide 2 mg tablet (Imodium 2 mg PO Q6HPRN PRN diarrhea 02/12/25 02/13/25 History
A-D)
menthol-aloe vera extract 16 % 1 ea topical HS apply to back of 02/12/25 02/13/25 History
topical gel (Icy Hot Power) neck
methenamine hippurate 1 gram tablet 1 g PO BID Urinary Issue 02/12/25 02/13/25 History
mineral oil-hydrophil petrolat 1 applic topical DAILYPRN PRN dry 02/12/25 02/13/25 History
topical ointment skin
nystatin 100,000 unit/gram topical 1 applic topical DAILYPRN PRN 02/12/25 02/13/25 History
powder fungal rash
ondansetron 4 mg disintegrating 4 mg PO Q8HPRN PRN nausea/vomiting 02/12/25 02/13/25 History
tablet
polyethylene glycol 3350 17 gram 17 g PO DAILYPRN PRN constipation 02/12/25 02/12/25 History
oral powder packet (Miralax)
pregabalin 25 mg capsule (Lyrica) 25 mg PO DAILY Antiseizure Agent, 02/12/25 02/13/25 History
pregabalin 50 mg capsule (Lyrica) 50 mg PO BID Antiseizure Agent, 02/12/25 02/13/25 History
spironolactone 25 mg tablet 25 mg PO DAILY Fluid 02/12/25 02/13/25 History
Retention/Swelling
vitamin B complex 1 tab PO DAILY Supplement 02/12/25 02/13/25 History
cranberry fruit 450 mg tablet 450 mg PO DAILY 02/13/25 02/13/25 History
(cranberry)
Review of Systems
-
History Source: Patient
All other systems: Negative unless noted
Physical Exam
Vital Signs
Temp Pulse Resp BP Pulse Ox
98.4 F 103 18 144/78 94
02/13/25 11:26 02/13/25 11:26 02/13/25 11:26 02/13/25 11:26 02/13/25 11:26
GEN: No distress, awake, Ox3, lying in bed
HEENT: supple, anicteric, mmm
LUNGS: Mildly decreased breath sounds at bases otherwise CTA, no wheezes/rales
CV: irregularly irregular, S1/S2, 1/6 systolic murmur, no rub or gallop
ABD: soft, BS+, NT/ND
EXT: No edema, clubbing or cyanosis
NEURO: Gross non-focal
SKIN: No rash, warm, dry, pink
Lab Results
02/13/25 07:00
02/13/25 07:00
Troponin I 0.020 ng/ml 02/12/25 14:21
Impression / Plan
-
Family Physician: Devin Ennis, DO
Gas Regulator Repairer: David De Guzman, last seen in September 2022
Impression:
Presented 02/12/2025 with lightheaded/dizziness, nausea and intermittent diarrhea
UTI
Paroxysmal atrial fibrillation
Hypokalemia
Hypertension
Hyperlipidemia
Type 2 diabetes
Esophageal stricture
GERD/hiatal hernia
Diverticular bleed with bowel resection 2019
Echo 02/13/2025: Ordered
Echo 08/05/2022: EF 60 to 65%. Mild pulmonary insufficiency otherwise normal thoracic echocardiogram.
Plan:
- Presented 02/12/2025 with lightheaded/dizziness, nausea and intermittent diarrhea.
- Found to have UTI and is now on antibiotics.
- Urine and blood cultures pending. Afebrile with normal white count
- Noted to be tachycardic on arrival. EKG demonstrates atrial fibrillation. This was reviewed with electrophysiology who confirms.
- Add low-dose beta-kirstie for rate control.
- Per patient she is uses a walker in her room and generally is wheeled around her facility. She denies falls or bleeding issues. Talked w/ daughter Debra who confirms no falls. They are agreeable to starting Eliquis.
- Replete potassium as K+ currently 3.4,
- Add on magnesium level and TSH level
- Check echocardiogram
Data Reviewed
-
EKG: Report Reviewed by me, Discussed with Physician, Discussed with Nurse, Discussed with Patient and Discussed with Family
Radiology: Report Reviewed by me, Discussed with Physician, Discussed with Patient and Discussed with Family
Ultrasound: Report Reviewed by me, Discussed with Physician, Discussed with Patient and Discussed with Family
Labs: Labs Reviewed by me, Discussed with Physician, Discussed with Nurse, Discussed with Patient and Discussed with Family
Old Records: Reviewed
[2025-02-13 14:37] LABS: Magnesium 0.8 mg/dl (1.6-2.3)
[2025-02-13 14:51] LABS: Glucose - Point of Care 174 mg/dl (70-99)
[2025-02-13] MEDS: NOVOLOG FLEXPEN-MODERATE RESISTANCE SC (15:23)
--- NOTE | 2025-02-13 16:28 | W.PN.HOSP.TC ---
Today's Communication/Plan
-
Confirmed A-fib, new onset
Consulted cardiology
Echocardiogram pending
DOAC and BB started
Continue IV antibiotics for UTI while awaiting culture data
Assessment / Plan
Assessment / Plan
89-year-old female with HTN, GERD, HLD, DM 2 presents with presyncope, found to have UTI and possible arrhythmia.
UTI:
UA with greater than 100 WBC, 3+ LE
Reviewed previous culture data patient had Klebsiella most recently in urine, also in remote past Citrobacter, also E. coli.
Blood culture pending, urine culture pending
Empiric ceftriaxone
Atrial fibrillation:
ED EKG appears to be A-fib with PVCs. In the past was NSR
Monitor on telemetry and repeated EKG in a.m. concern for A-fib
I consulted cardiology discussed with team.
They have initiated oral anticoagulation and beta-kirstie for rate control. Echocardiogram also ordered and pending.
Possibly this contributed to her presyncope
HTN:
BP elevated continue home BP meds Lasix and spironolactone and adjust as needed
Coreg also added
DM 2:
Uncontrolled, BG elevated
Continue with mixed 70/30 and Trulicity is q. Wednesday
Patient takes 40 units in a.m. and 30 units in p.m., add sliding scale insulin as well
A1c is 6.4%
Chronic pain: Continue Lyrica and duloxetine
Diarrhea: continue colestiple
DVT PPx Lovenox
Full code
Anticipated Discharge: 24 - 48 hours
Subjective/Interval History
-
Date of Service: February 13, 2025
Patient states she is feeling nauseous and only ate some bread for breakfast. Denies any palpitations or dizziness overnight
Objective Data
-
Labs:
Laboratory Results
02/13/25
07:00
WBC 7.9
Hgb 11.8 L
Hct 35.3 L
Plt Count 188
Sodium 138
Potassium 3.4 L
Chloride 105
Carbon Dioxide 26
BUN 10
Creatinine 0.7
Glucose 154 H
Calcium 8.3 L
Vital Signs:
Vital Signs
Temp Pulse Resp BP Pulse Ox
98.4 F 103 18 144/78 94
02/13/25 11:26 02/13/25 11:26 02/13/25 11:26 02/13/25 11:26 02/13/25 11:26
I&O
02/12/25 02/13/25 02/14/25
06:59 06:59 06:59
Intake Total 60 / 60
Balance 60 / 60
Review of Systems
-
History Source: Patient
All other systems: Reviewed and negative
Physical Exam
-
General: Well Developed, Well Nourished and Appears in Distress (Nausea)
HEENT: Moist Mucous Membranes and PERRLA
Respiratory: Clear to Auscultation; Negative Wheezes, Rales or Rhonchi
Cardiac: Irregular Rhythm and Murmur
GI: Soft, Nontender, Normal Bowel Sounds and Other (Hernia)
Musculoskeletal: No Clubbing and No Edema
Skin: Warm and Dry
Neuro: Awake, AO x 3 and Nonfocal/Grossly Intact
Psych: Calm
Data Reviewed
-
Labs: Labs Reviewed by me
[2025-02-13] MEDS: TOPROL XL 25 MG PO (16:45)
[2025-02-13] MEDS: DESENEX/MITRAZOL/ZEASORB 1 APPLIC TOPICAL (16:54)
[2025-02-13 17:25] LABS: Glucose - Point of Care 195 mg/dl (70-99)
[2025-02-13] MEDS: LIPITOR 20 MG PO (20:07)
[2025-02-13] MEDS: ROCEPHIN 1000 MG IV (20:07)
[2025-02-13] MEDS: ELIQUIS 5 MG PO (20:07)
[2025-02-13] MEDS: STERILE WATER FOR INJECTION 10 ML IV (20:08)
[2025-02-13 21:21] LABS: Glucose - Point of Care 254 mg/dl (70-99)
[2025-02-14 03:00] VITALS: BP 125/72
[2025-02-14 06:21] VITALS: BMI 38.8
[2025-02-14 06:23] LABS: Hematocrit 36.3 % (37.0-47.0); Hemoglobin 11.5 g/dL (12.0-16.0); Mean Corp Hgb Conc. 31.7 g/dL (33.0-37.0); Mean Corpuscular Volume 101.7 fL (81.0-99.0); Nucleated Red Blood Cells % 0 %; Platelet Count 190 10^3/uL (130-400); Red Cell Dist. Width 13.3 % (11.5-14.5)
[2025-02-14 06:50] LABS: Blood Urea Nitrogen 11 mg/dl (7-17); Calcium 8.4 mg/dl (8.4-10.2); Carbon Dioxide 27 mmol/L (22-30); Chloride 106 mmol/L (98-107); Estimated Creatinine Clearance 44 ml/min; Glucose 158 mg/dl (70-99); Potassium 4.1 mmol/L (3.5-5.1); Sodium 138 mmol/L (135-145); eGFR > 60.00
[2025-02-14 08:24] VITALS: BP 119/62
[2025-02-14 08:35] LABS: Glucose - Point of Care 163 mg/dl (70-99)
[2025-02-14] MEDS: QUESTRAN 4 GRAM PO ×2 (09:48→19:46)
[2025-02-14] MEDS: ELIQUIS 5 MG PO ×2 (09:48→19:43)
[2025-02-14] MEDS: LYRICA 25 MG PO (09:48)
[2025-02-14] MEDS: VITAMIN D3 (cholecalciferol) 50 MCG PO (09:48)
[2025-02-14] MEDS: TOPROL XL 25 MG PO (09:48)
[2025-02-14] MEDS: ZYRTEC 10 MG PO (09:49)
[2025-02-14] MEDS: NOVOLOG MIX 70/30 FLEXPEN 30 UNITS SC ×2 (09:49→18:23)
[2025-02-14] MEDS: B COMPLEX w/VITAMIN C 1 CAPLET PO (09:49)
[2025-02-14] MEDS: CYMBALTA DELAYED RELEASE 60 MG PO (09:49)
[2025-02-14] MEDS: VITAMIN C 500 MG PO ×2 (09:49→19:43)
[2025-02-14] MEDS: NOVOLOG FLEXPEN-MODERATE RESISTANCE 1 UNITS SC (09:50)
[2025-02-14] MEDS: ALDACTONE 25 MG PO (09:50)
[2025-02-14] MEDS: LASIX 20 MG PO (09:51)
--- NOTE | 2025-02-14 11:34 | W.PN.HOSP.TC ---
Today's Communication/Plan
-
awaiting urine culture
Eliquis/Metop
eventual SNF
Assessment / Plan
Assessment / Plan
89-year-old female with HTN, GERD, HLD, DM 2 presents with presyncope, found to have UTI and possible arrhythmia.
TTE
CONCLUSIONS
Normal left ventricular size and function. Normal regional wall motion. Mild
concentric left ventricular hypertrophy. Left ventricular ejection fraction is
50-55% by visual assessment. Diastolic function indeterminate due to atrial
fibrillation.
Normal right ventricular size and function.
Moderate mitral regurgitation. Indexed LA volume is severely abnormal.
Aortic sclerosis without stenosis. Mild to moderate aortic regurgitation.
Compared to prior study dated 02/16/2013: mitral regurgitation was previously
mild and has worsened; aortic sclerosis and mild to moderate aortic
regurgitation are new.
UTI:
UA with greater than 100 WBC, 3+ LE
Reviewed previous culture data patient had Klebsiella most recently in urine, also in remote past Citrobacter, also E. coli.
-empiric IV Ceftriaxone
-follow up urine culture
Atrial fibrillation:
patient in and out of afib overnight
-appreciate cardiology consult
-s/p TTE, results above
-new start Eliquis, Metop XL
-follow up further recommendations
Coag neg staph blood culture contaminant
HTN:
BP elevated continue home BP meds Lasix and spironolactone and adjust as needed
-new start Metoprolol
DM 2:
Uncontrolled, BG elevated
Continue with mixed 70/30 and Trulicity is q. Wednesday
Patient takes 40 units in a.m. and 30 units in p.m., add sliding scale insulin as well
A1c is 6.4%
-BGL OK in-house
Chronic pain: Continue Lyrica and duloxetine
Diarrhea: continue colestiple
DVT PPx Eliquis
Full code
Anticipated Discharge: 24 - 48 hours
Subjective/Interval History
-
Date of Service: February 14, 2025
no new complaints
feels tired
Objective Data
-
Labs:
Laboratory Results
02/14/25
06:04
WBC 6.4
Hgb 11.5 L
Hct 36.3 L
Plt Count 190
Sodium 138
Potassium 4.1
Chloride 106
Carbon Dioxide 27
BUN 11
Creatinine 0.8
Glucose 158 H
Calcium 8.4
Vital Signs:
Vital Signs
Temp Pulse Resp BP Pulse Ox
98.3 F 79 18 119/62 92
02/14/25 08:24 02/14/25 08:24 02/14/25 08:24 02/14/25 08:24 02/14/25 08:24
I&O
02/13/25 02/14/25 02/15/25
06:59 06:59 06:59
Intake Total 60 / 60 720 / 720
Balance 60 / 60 720 / 720
Review of Systems
-
History Source: Patient
All other systems: Reviewed and negative
Physical Exam
-
General: Comfortable
HEENT: Moist Mucous Membranes and PERRLA
Respiratory: Clear to Auscultation; Negative Wheezes, Rales or Rhonchi
Cardiac: Irregular Rhythm and Murmur
GI: Soft, Nontender, Normal Bowel Sounds and Other (Hernia)
Musculoskeletal: No Clubbing and No Edema
Skin: Warm and Dry
Neuro: Awake, AO x 3 and Nonfocal/Grossly Intact
Psych: Calm
Data Reviewed
-
Diagnostic Radiology: Report Reviewed by me
Labs: Labs Reviewed by me
[2025-02-14 12:14] VITALS: BP 122/64
[2025-02-14 12:15] LABS: Glucose - Point of Care 146 mg/dl (70-99)
[2025-02-14] MEDS: NOVOLOG FLEXPEN-MODERATE RESISTANCE SC ×2 (12:21→17:31)
--- NOTE | 2025-02-14 13:47 | W.PN.CARDCBS ---
Addendum entered and electronically signed by Feng Condon MD 02/14/25 17:59:
I saw and examined the patient.
The Serger's note was reviewed and I agree with the note.
Comment:
GEN: No distress, awake, Ox3
HEENT: supple, anicteric, mmm
LUNGS: CTA, no wheezes/rales
CV: Irreg, S1/S2, 1/6 syst LSB, no gallop
ABD: soft, BS+, NT/ND
EXT: + edema
NEURO: Gross non-focal
SKIN: No rash
Plan:
Remains in rate controlled atrial fibrillation. Continue Toprol and Eliquis. Continue to follow on telemetry. Replete magnesium and recheck in AM.
Overall remains relatively stable. Echo with preserved ejection fraction and moderate mitral regurgitation.
Blood pressure remains on the low side. Continue to follow on spironolactone.
Original Note:
Today's Communication / Plan
-
Magnesium rider and then start mag ox in AM
Recheck labs in AM, all ordered by me
Impression / Plan
-
Family Physician: Devin Ennis, DO
Rubber Engraver: David De Guzman, last seen in September 2022
Impression:
Presented 02/12/2025 with lightheaded/dizziness, nausea and intermittent diarrhea
UTI
Paroxysmal atrial fibrillation new diagnosis 02/12/2025
Hypokalemia
Hypertension
Hyperlipidemia
Type 2 diabetes
Esophageal stricture
GERD/hiatal hernia
Diverticular bleed with bowel resection 2019
Hypomagnesemia
Echo 08/05/2022: EF 60 to 65%. Mild pulmonary insufficiency otherwise normal thoracic echocardiogram.
Echo 02/13/2025: EF 50 to 55%, normal RV size and function, moderate MR, mild to moderate aortic regurgitation
Plan:
-Patient with newly diagnosed paroxysmal atrial fibrillation on admission prompting cardiology consultation.
-Telemetry reviewed by me 02/14/2025 and rate is controlled at 72 and looks fairly regular, but I do not see P waves. Check ECG now, ordered by me
-New to Toprol XL 25 mg daily this admission.
-Also new to Eliquis 5 mg BID (age 89, Cre 0.8, wt 81 kg). Will E scribe Rx and ask CM to check on cost
-EF preserved by echo with evidence of moderate MR.
-Outpatient dose of spironolactone 25 mg daily has been continued
-Potassium was 3.4 on 02/13/2025 and improved to 4.1 on 02/14/2025, labs reviewed by me. Also the magnesium level was 0.8 on 02/13/2025, MAR reviewed by me and no evidence that magnesium supplementation was given. Will order magnesium rider now
followed by magnesium oxide 500 mg daily starting 02/15/2025 AM
-Will arrange cardiology follow-up
Progress Note - Rubber Engraver
Subjective
Date of Service: February 14, 2025
Feels well, denies cramping
Objective
Labs:
02/14/25 06:04
02/14/25 06:04
Labs
Hgb 11.5 g/dL (12.0-16.0) L 02/14/25 06:04
Hct 36.3 % (37.0-47.0) L 02/14/25 06:04
Plt Count 190 10^3/uL (130-400) 02/14/25 06:04
Sodium 138 mmol/L (135-145) 02/14/25 06:04
Potassium 4.1 mmol/L (3.5-5.1) 02/14/25 06:04
BUN 11 mg/dl (7-17) 02/14/25 06:04
Creatinine 0.8 mg/dL (0.6-1.0) 02/14/25 06:04
Glucose 158 mg/dl (70-99) H 02/14/25 06:04
Troponins
02/12/25
14:21
Troponin I 0.020
Vital Signs and I&O:
Vital Signs
Temp Pulse Resp BP Pulse Ox
98.1 F 76 18 122/64 95
02/14/25 12:14 02/14/25 12:14 02/14/25 12:14 02/14/25 12:14 02/14/25 12:14
Vital Signs
Temp Pulse Resp BP Pulse Ox
98.1 F 76 18 122/64 95
02/14/25 12:14 02/14/25 12:14 02/14/25 12:14 02/14/25 12:14 02/14/25 12:14
Intake & Output
02/12/25 02/13/25 02/14/25 02/15/25
06:59 06:59 06:59 06:59
Intake Total 60 / 60 720 / 720
Balance 60 / 60 720 / 720
Physical Exam
Physical Exam
GEN: AAOx3
LUNGS: RA. No audible wheeze
CV: Looks like SR on tele, but no discernable P waves, Reg
[2025-02-14] MEDS: MAGNESIUM SULFATE 100 IV (15:41)
--- NOTE | 2025-02-14 16:07 | CM ---
CM reviewed chart, spoke with Li from [facility], patient is from [facility], not LTC. Patient will require auth for SNF upon discharge. Li will obtain PLOF, reports Chief Psychologist on vacation and will return
tomorrow- will update CM. Will continue to follow for all discharge planning needs.
Plan; [facility] SNF vs return to
[2025-02-14 16:40] VITALS: BP 95/59
[2025-02-14 17:16] LABS: Glucose - Point of Care 60 mg/dl (70-99)
[2025-02-14 18:01] LABS: Glucose - Point of Care 76 mg/dl (70-99)
[2025-02-14 18:22] LABS: Glucose - Point of Care 83 mg/dl (70-99)
[2025-02-14 19:00] VITALS: BP 88/49
[2025-02-14] MEDS: ROCEPHIN 1000 MG IV (19:43)
[2025-02-14] MEDS: STERILE WATER FOR INJECTION 10 ML IV (19:43)
[2025-02-14] MEDS: LIPITOR 20 MG PO (19:46)
[2025-02-14 20:45] LABS: Glucose - Point of Care 96 mg/dl (70-99)
[2025-02-14 23:00] VITALS: BP 129/69
[2025-02-15] VITALS (8 sets, daily range): BP systolic 102–131; BP diastolic 49–74; PULSE 71; O2SAT 98; BMI 38.8
[2025-02-15] MEDS: DEXTROSE 50% SYRINGE 12.5 GRAMS IV (02:46)
[2025-02-15 02:47] LABS: Glucose - Point of Care 27 mg/dl (70-99)
--- NOTE | 2025-02-15 03:17 | PTCARENOTE ---
patient found to be diaphoretic and lethargic for 0300 accu check. Blood sugar result 27, D 50 pushed. Notified house AVAYA ENGINEER orders received. patient more awake, drinking juice and eating crackers. VAT called to place larger IV
[2025-02-15 03:24] LABS: Glucose - Point of Care 113 mg/dl (70-99)
[2025-02-15 04:33] LABS: Glucose - Point of Care 142 mg/dl (70-99)
[2025-02-15 05:51] LABS: Glucose - Point of Care 182 mg/dl (70-99)
[2025-02-15 07:04] LABS: Blood Urea Nitrogen 16 mg/dl (7-17); Calcium 8.4 mg/dl (8.4-10.2); Carbon Dioxide 27 mmol/L (22-30); Chloride 105 mmol/L (98-107); Estimated Creatinine Clearance 39 ml/min; Glucose 182 mg/dl (70-99); Magnesium 1.8 mg/dl (1.6-2.3); Potassium 4.3 mmol/L (3.5-5.1); Sodium 138 mmol/L (135-145); eGFR > 60.00
[2025-02-15 08:14] LABS: Glucose - Point of Care 181 mg/dl (70-99)
[2025-02-15] MEDS: ALDACTONE 25 MG PO (09:30)
[2025-02-15] MEDS: ZYRTEC 10 MG PO (09:30)
[2025-02-15] MEDS: TOPROL XL 25 MG PO (09:30)
[2025-02-15] MEDS: LYRICA 25 MG PO (09:30)
[2025-02-15] MEDS: ELIQUIS 5 MG PO ×2 (09:30→20:11)
[2025-02-15] MEDS: QUESTRAN 4 GRAM PO ×2 (09:30→20:11)
[2025-02-15] MEDS: MAGNESIUM OXIDE 500 MG PO (09:30)
[2025-02-15] MEDS: B COMPLEX w/VITAMIN C 1 CAPLET PO (09:30)
[2025-02-15] MEDS: CYMBALTA DELAYED RELEASE 60 MG PO (09:30)
[2025-02-15] MEDS: NOVOLOG FLEXPEN-MODERATE RESISTANCE 1 UNITS SC (09:31)
[2025-02-15] MEDS: VITAMIN D3 (cholecalciferol) 50 MCG PO (09:31)
[2025-02-15] MEDS: VITAMIN C 500 MG PO ×2 (09:31→20:11)
--- NOTE | 2025-02-15 10:02 | W.PN.HOSP.TC ---
Addendum entered and electronically signed by Faina Lynch MD 02/15/25 15:34:
I would not classify as sepsis given elevated pulse 2/2 afib with RVR.
Original Note:
Today's Communication/Plan
-
adjust insulin
awaiting blood cultures
appreciate Cardiology - continue Metoprolol, Eliquis
Assessment / Plan
Assessment / Plan
89-year-old female with HTN, GERD, HLD, DM 2 presents with presyncope, found to have UTI and possible arrhythmia.
TTE
CONCLUSIONS
Normal left ventricular size and function. Normal regional wall motion. Mild
concentric left ventricular hypertrophy. Left ventricular ejection fraction is
50-55% by visual assessment. Diastolic function indeterminate due to atrial
fibrillation.
Normal right ventricular size and function.
Moderate mitral regurgitation. Indexed LA volume is severely abnormal.
Aortic sclerosis without stenosis. Mild to moderate aortic regurgitation.
Compared to prior study dated 02/16/2013: mitral regurgitation was previously
mild and has worsened; aortic sclerosis and mild to moderate aortic
regurgitation are new.
UTI:
UA with greater than 100 WBC, 3+ LE
Reviewed previous culture data patient had Klebsiella most recently in urine, also in remote past Citrobacter, also E. coli.
-empiric IV Ceftriaxone
-follow up urine culture
Coag neg staph blood culture /
-blood cultures repeated 02/14 - awaiting result
-case discussed with microbiology - given 2/2 coag negative staph - these will be speciated, and results should come back in next 1-2 days
-for now I will increased IV Ceftriaxone to 2G q 24 hours
-discussed briefly with ID - if different species then we can say this is contaminant. If same species would need ID consult. Patient has hx hardware in back/spinal surgery
Atrial fibrillation:
patient in and out of afib overnight
-appreciate cardiology consult
-s/p TTE, results above
-new start Eliquis, Metop XL
HTN:
BP elevated continue home BP meds Lasix and spironolactone and adjust as needed
-new start Metoprolol
DM 2:
Patient takes 70/30 40 units in a.m. and 30 units in p.m - was ordered for 30 units BID here then dropped overnight
A1c is 6.4% - will lower dosing at home to prevent hypoglycemia
-stop 70/30 and give NPH 10 units BID here, starting this evening
-BGL better this morning
Chronic pain: Continue Lyrica and duloxetine
Diarrhea: continue colestiple
DVT PPx Eliquis
Full code
Anticipated Discharge: 24 - 48 hours
Subjective/Interval History
-
Date of Service: February 15, 2025
she feels weak and tired today
denies pain
she has hx spinal surgery; back pain chronic and not significant right now
Objective Data
-
Labs:
Laboratory Results
02/15/25
06:01
Sodium 138
Potassium 4.3
Chloride 105
Carbon Dioxide 27
BUN 16
Creatinine 0.9
Glucose 182 H
Calcium 8.4
Vital Signs:
Vital Signs
Temp Pulse Resp BP Pulse Ox
97.4 F 74 16 117/64 96
02/15/25 07:20 02/15/25 07:20 02/15/25 07:20 02/15/25 07:20 02/15/25 07:20
I&O
02/14/25 02/15/25 02/16/25
06:59 06:59 06:59
Intake Total 720 / 720
Balance 720 / 720
Review of Systems
-
History Source: Patient
All other systems: Reviewed and negative
Physical Exam
-
General: Comfortable
HEENT: Moist Mucous Membranes and PERRLA
Respiratory: Clear to Auscultation; Negative Wheezes, Rales or Rhonchi
Cardiac: Irregular Rhythm and Murmur
GI: Soft, Nontender, Normal Bowel Sounds and Other (Hernia)
Musculoskeletal: No Clubbing and No Edema
Skin: Warm and Dry
Neuro: Awake, AO x 3 and Nonfocal/Grossly Intact
Psych: Calm
Data Reviewed
-
Diagnostic Radiology: Report Reviewed by me
Labs: Labs Reviewed by me
[2025-02-15] MEDS: ROCEPHIN 1000 MG IV (10:22)
[2025-02-15] MEDS: STERILE WATER FOR INJECTION 10 ML IV (10:22)
--- NOTE | 2025-02-15 11:35 | W.PN.CARDCBS ---
Addendum entered and electronically signed by Shay Washburn MD 02/15/25 16:02:
I saw and examined the patient.
The ROD MILL OPERATOR or PA's note was reviewed and I agree with the note.
Comment: General: Well developed, well nourished in NAD.
Neck: Supple, no JVD, HJR, carotids +2 B/L, no bruits bilaterally.
Heart: Non displaced PMI, irregular, no murmurs, No S3, S4, no rubs.
Lungs: Scattered rhonchi
Extremities: No clubbing, cyanosis or edema bilaterally.
Neuro: Grossly nonfocal, awake, alert and oriented x3.
Stable cardiology status for discharge. Will arrange cardiology follow-up. She remains on antibiotics for UTI. Will sign off, call with questions.
Original Note:
Today's Communication / Plan
-
Cont Toprol XL and Eliquis
Arranging cardiology f/u
Impression / Plan
-
Family Physician: Devin Ennis, DO
Ethylene Compressor Operator: David De Guzman, last seen in September 2022
Impression:
Presented 02/12/2025 with lightheaded/dizziness, nausea and intermittent diarrhea
UTI
Paroxysmal atrial fibrillation new diagnosis 02/12/2025
Hypokalemia
Hypertension
Hyperlipidemia
Type 2 diabetes
Esophageal stricture
GERD/hiatal hernia
Diverticular bleed with bowel resection 2019
Hypomagnesemia
Echo 08/05/2022: EF 60 to 65%. Mild pulmonary insufficiency otherwise normal thoracic echocardiogram.
Echo 02/13/2025: EF 50 to 55%, normal RV size and function, moderate MR, mild to moderate aortic regurgitation
Plan:
-Patient with newly diagnosed paroxysmal atrial fibrillation on admission prompting cardiology consultation.
-Telemetry reviewed by me 02/15/2025 and rate is controlled at 79
-New to Toprol XL 25 mg daily this admission.
-Also new to Eliquis 5 mg BID (age 89, Cre 0.8, wt 81 kg).
-EF preserved by echo with evidence of moderate MR.
-Outpatient dose of spironolactone 25 mg daily has been continued
-Magnesium improved to 1.8 on labs reviewed by me 02/15/2025. Patient received magnesium rider 02/14/2025 and is now ordered magnesium oxide 500 mg daily
-Will arrange cardiology follow-up
Progress Note - Ethylene Compressor Operator
Subjective
Date of Service: February 15, 2025
Feels well
Objective
Labs:
02/14/25 06:04
02/15/25 06:01
Labs
Hgb 11.5 g/dL (12.0-16.0) L 02/14/25 06:04
Hct 36.3 % (37.0-47.0) L 02/14/25 06:04
Plt Count 190 10^3/uL (130-400) 02/14/25 06:04
Sodium 138 mmol/L (135-145) 02/15/25 06:01
Potassium 4.3 mmol/L (3.5-5.1) 02/15/25 06:01
BUN 16 mg/dl (7-17) 02/15/25 06:01
Creatinine 0.9 mg/dL (0.6-1.0) 02/15/25 06:01
Glucose 182 mg/dl (70-99) H 02/15/25 06:01
Troponins
02/12/25
14:21
Troponin I 0.020
Vital Signs and I&O:
Vital Signs
Temp Pulse Resp BP Pulse Ox
98.2 F 79 16 131/74 98
02/15/25 11:25 02/15/25 11:25 02/15/25 11:25 02/15/25 11:25 02/15/25 11:25
Vital Signs
Temp Pulse Resp BP Pulse Ox
98.2 F 79 16 131/74 98
02/15/25 11:25 02/15/25 11:25 02/15/25 11:25 02/15/25 11:25 02/15/25 11:25
Intake & Output
02/13/25 02/14/25 02/15/25 02/16/25
06:59 06:59 06:59 06:59
Intake Total 60 / 60 720 / 720
Balance 60 / 60 720 / 720
Physical Exam
Physical Exam
GEN: AAOx3
LUNGS: RA. No audible wheeze
CV: Afib on tele
[2025-02-15 11:48] LABS: Glucose - Point of Care 204 mg/dl (70-99)
[2025-02-15] MEDS: NOVOLOG FLEXPEN-MODERATE RESISTANCE 3 UNITS SC (11:52)
--- NOTE | 2025-02-15 12:12 | PN.CDI ---
CDI
- -
CDI:
Physician Documentation Request
Admit Date: 02/12/25 23:32
Dear Doctor Cris,
Please review the following and provide your response in the progress notes.
Clinical Indicators:
Pt admitted with UTI and Afib.
Selected Entries
02/12/25
14:08 02/12/25
16:40 02/12/25
17:30
Pulse 116 108
Resp Rate 29
02/12/25
18:00 02/12/25
20:30 02/12/25
22:00
Pulse 108
Resp Rate 30 25
02/12/25
22:30 02/12/25
23:30 02/12/25
23:45
Pulse 105 102
Resp Rate 26
Please clarify which of the following most accurately describes the status of the patient's infection:
Sepsis
- Systemic manifestations of infection, with 2 or more SIRS criteria which include:
- Fever >100.9 degrees F or hypothermia < 96.8 degrees F
- Leukocytosis - WBC > 12,000 or leukopenia - WBC < 4,000 or > 10% bands
- Tachycardia > 90 beats per minute
- Tachypnea - RR > 20 breaths per minute or PaCO2 , 32mmHg
Source: Merck Manual 2012
- Indicate the known or suspected organism
- Indicate the known or suspected underlying infection, such as UTI, pneumonia or cellulitis
- Indicate if a suspected bacterial infection of unknown source
UTI Only, Without Systemic Illness
Other
Use of terms such as suspected, likely, concern for, or probable (associated with a specific diagnosis that is being evaluated, monitored, or treated as if it exists) are acceptable and can be coded in the inpatient setting, when documented at the
time of discharge.
Thank you,
Serina Jackson RN, BSN
CDI Specialist
[place] [facility]
Please use your independent medical judgment in providing your response.
--- NOTE | 2025-02-15 15:37 | CM ---
CM reviewed chart, patient and daughter Debra seen bedside, discussed therapy recommendations of SNF, daughter and patient requesting referral to [facility], referral placed in [facility]. Patient/daughter do not want to go to [facility] ([place]
Patient will require insurance auth once accepting facility found. CM will continue to follow for all discharge planning needs.
Plan; Referral to [facility], will need auth if able to accept
--- NOTE | 2025-02-15 15:52 | W.PN.UPDATE ---
Update Note
Progress Note Update
Urine culture growing Aerococcus, sensitivity to cephalosporins unknown. I will change abx to Unasyn while waiting results of blood cultures.
[2025-02-15 16:07] LABS: Glucose - Point of Care 257 mg/dl (70-99)
[2025-02-15] MEDS: UNASYN IV ×2 (16:14→21:55)
[2025-02-15] MEDS: HUMULIN N KWIKPEN 10 UNITS SC (16:14)
[2025-02-15] MEDS: NOVOLOG FLEXPEN-MODERATE RESISTANCE 5 UNITS SC (16:14)
[2025-02-15] MEDS: LIPITOR 20 MG PO (20:11)
[2025-02-15 21:17] LABS: Glucose - Point of Care 198 mg/dl (70-99)
[2025-02-16 03:25] VITALS: BP 117/65
[2025-02-16] MEDS: UNASYN IV ×2 (04:03→11:18)
--- NOTE | 2025-02-16 07:00 | W.PN.HOSP.TC ---
Today's Communication/Plan
-
IV abx de-escalated to PO Augmentin
PT/OT
Glycemic Control
lidocaine patches, bengay-like cream lower back
pain control
Assessment / Plan
Assessment / Plan
Physical Exam
General: no acute distress, appears comfortable at this time
HEENT: Moist Mucous Membranes and PERRLA
Respiratory: Clear to Auscultation; Negative Wheezes, Rales or Rhonchi
Cardiac: Irregular Rhythm and Murmur
GI: Soft, Nontender, Normal Bowel Sounds, Hernia
Musculoskeletal: No Clubbing and No Edema
Skin: Warm and Dry
Neuro: AOx3 conversant coherent
Psych: Calm
89F HTN, GERD, HLD, DM 2 presents with presyncope, found to have UTI and Afib.
TTE
CONCLUSIONS
Normal left ventricular size and function. Normal regional wall motion. Mild
concentric left ventricular hypertrophy. Left ventricular ejection fraction is
50-55% by visual assessment. Diastolic function indeterminate due to atrial
fibrillation.
Normal right ventricular size and function.
Moderate mitral regurgitation. Indexed LA volume is severely abnormal.
Aortic sclerosis without stenosis. Mild to moderate aortic regurgitation.
Compared to prior study dated 02/16/2013: mitral regurgitation was previously
mild and has worsened; aortic sclerosis and mild to moderate aortic
regurgitation are new.
UTI:
UA with greater than 100 WBC, 3+ LE
Reviewed previous culture data patient had Klebsiella most recently in urine, also in remote past Citrobacter and E. coli.
-received empiric IV Ceftriaxone, switched to unasyn, de-escalated to Augmentin
-Urine cx pos for Aerococcus
Coag neg staph blood cultures likely contaminants
-blood cultures repeated 02/14 - NGTD
Atrial fibrillation:
patient in and out of afib
-appreciate cardiology consult
-s/p TTE, results above
-new Eliquis, Metop XL, cont
HTN:
BP elevated continue home BP meds Lasix and spironolactone and adjust as needed
new Metoprolol as above
DM 2:
Patient takes 70/30 40 units in a.m. and 30 units in p.m - was ordered for 30 units BID here then dropped overnight
A1c is 6.4% - Dose lowered to prevent recurrence hypoglycemia
DM FILAMENT MAKER andree appreciated 70/30 14U BID
sliding scale
Chronic pain: Continue Lyrica and duloxetine
Lower back pain
-lidocaine patches
-bengay-like cream
Poor Sleep
-bedtime melatonin
Diarrhea: continue colestiple
DVT PPx Eliquis
Full code
I spent a total of 45 minutes with the patient or on the floor. More than 50% of this time involved counseling and coordination of care.
Anticipated Discharge: 24 - 48 hours
Subjective/Interval History
-
Date of Service: February 16, 2025
No acute distress, resting comfortably in bed. Overall reports feeling well. Notes some burning sensation on urination persists.
Objective Data
-
Vital Signs:
Vital Signs
Temp Pulse Resp BP Pulse Ox
98 F 76 12 117/65 94
02/16/25 03:25 02/16/25 03:25 02/16/25 03:25 02/16/25 03:25 02/16/25 03:25
I&O
02/15/25 02/16/25 02/17/25
06:59 06:59 06:59
Intake Total 1320 / 1320
Balance 1320 / 1320
[2025-02-16 07:15] VITALS: BP 110/55
[2025-02-16] MEDS: ALDACTONE 25 MG PO (08:00)
[2025-02-16] MEDS: VITAMIN D3 (cholecalciferol) 50 MCG PO (08:00)
[2025-02-16] MEDS: VITAMIN C 500 MG PO ×2 (08:00→20:00)
[2025-02-16] MEDS: B COMPLEX w/VITAMIN C 1 CAPLET PO (08:00)
[2025-02-16] MEDS: ELIQUIS 5 MG PO ×2 (08:00→19:59)
[2025-02-16] MEDS: MAGNESIUM OXIDE 500 MG PO (08:00)
[2025-02-16] MEDS: QUESTRAN 4 GRAM PO ×2 (08:00→20:02)
[2025-02-16] MEDS: HUMULIN N KWIKPEN 10 UNITS SC (08:00)
[2025-02-16] MEDS: ZYRTEC 10 MG PO (08:00)
[2025-02-16] MEDS: TOPROL XL 25 MG PO (08:00)
[2025-02-16] MEDS: LYRICA 25 MG PO (08:00)
[2025-02-16] MEDS: CYMBALTA DELAYED RELEASE 60 MG PO (08:00)
[2025-02-16] MEDS: LASIX 20 MG PO (08:00)
[2025-02-16 08:03] LABS: Glucose - Point of Care 148 mg/dl (70-99)
[2025-02-16] MEDS: NOVOLOG FLEXPEN-MODERATE RESISTANCE SC (08:06)
[2025-02-16] MEDS: TYLENOL 650 MG PO (09:30)
[2025-02-16 11:16] VITALS: BP 106/49
[2025-02-16 11:40] LABS: Glucose - Point of Care 232 mg/dl (70-99)
[2025-02-16] MEDS: NOVOLOG FLEXPEN-MODERATE RESISTANCE 3 UNITS SC (12:58)
--- NOTE | 2025-02-16 14:33 | PN.DE.MGMTRT ---
Insulin Management
- -
02/16/2025 Diabetes Management Consult
Patient admitted 02/12 with B/P problem, dizziness, lightheadedness, nausea, found to have UTI. Diabetes management consult 02/16. PMH GERD, HCL, diabetes. Prior to admission was taking 70/30 insulin 30 units with breakfast and 40 units with
dinner with a sliding scale and Trulicity weekly. A1C is 6.3% , cr .9, eGFR > 60.
Patient is awake alert and oriented able to discuss diabetes care.
Glucose has been labile, 02/14 @ HS glucose was 27. 70/30 stopped, Fasting glucose 148 pre lunch 232.
Will resume 70/30 at 14 units BID, first dose with dinner. Will reduce corrective insulin from moderate to high.
Discussed with nurse.
Will follow.
Diabetes History
- -
Type of Diabetes: 2 requiring insulin
Pre-Admission Diabetes Regimen
Lab Results
Hemoglobin A1c 6.4 % (4.0-5.6) H 02/13/25 07:00
Insulin Pump Settings
IP Diabetes Regimen
02/15/25 02/15/25 02/16/25
16:06 21:16 08:02
POC Glucose 257 H 198 H 148 H
02/16/25
11:38
POC Glucose 232 H
Patient Education
[2025-02-16 15:20] VITALS: BP 105/59
[2025-02-16 16:28] LABS: Glucose - Point of Care 166 mg/dl (70-99)
[2025-02-16] MEDS: BenGay-Like TOPICAL (17:42)
[2025-02-16] MEDS: LIDOCAINE 4% PATCH TOPICAL (17:43)
[2025-02-16] MEDS: NOVOLOG FLEXPEN-LOW RESISTANCE 1 UNITS SC (18:40)
[2025-02-16] MEDS: NOVOLOG MIX 70/30 FLEXPEN 14 UNITS SC (18:40)
[2025-02-16] MEDS: AUGMENTIN 875 MG/125 MG 1 TABLET PO (19:58)
[2025-02-16] MEDS: REMOVE LIDOCAINE PATCH REMOVE (20:01)
[2025-02-16] MEDS: BenGay-Like 1 APPLIC TOPICAL (21:11)
[2025-02-16] MEDS: MELATONIN 3 MG PO (21:11)
[2025-02-16] MEDS: LIPITOR 20 MG PO (21:11)
[2025-02-16 21:24] LABS: Glucose - Point of Care 129 mg/dl (70-99)
[2025-02-16 23:16] VITALS: BP 111/64
[2025-02-17 07:23] LABS: Hematocrit 35.9 % (37.0-47.0); Hemoglobin 11.7 g/dL (12.0-16.0); Mean Corp Hgb Conc. 32.6 g/dL (33.0-37.0); Mean Corpuscular Volume 101.4 fL (81.0-99.0); Platelet Count 200 10^3/uL (130-400); Red Cell Dist. Width 13.4 % (11.5-14.5)
[2025-02-17 07:44] LABS: Blood Urea Nitrogen 16 mg/dl (7-17); Calcium 8.7 mg/dl (8.4-10.2); Carbon Dioxide 28 mmol/L (22-30); Chloride 105 mmol/L (98-107); Estimated Creatinine Clearance 44 ml/min; Glucose 127 mg/dl (70-99); Magnesium 1.1 mg/dl (1.6-2.3); Potassium 4.5 mmol/L (3.5-5.1); Sodium 137 mmol/L (135-145); eGFR > 60.00
[2025-02-17 08:42] LABS: Glucose - Point of Care 137 mg/dl (70-99)
[2025-02-17] MEDS: NOVOLOG FLEXPEN-LOW RESISTANCE SC ×3 (08:42→17:02)
[2025-02-17] MEDS: AUGMENTIN 875 MG/125 MG 1 TABLET PO (08:43)
[2025-02-17] MEDS: B COMPLEX w/VITAMIN C 1 CAPLET PO (08:43)
[2025-02-17] MEDS: VITAMIN D3 (cholecalciferol) 50 MCG PO (08:44)
[2025-02-17] MEDS: CYMBALTA DELAYED RELEASE 60 MG PO (08:44)
[2025-02-17] MEDS: MAGNESIUM OXIDE 500 MG PO (08:44)
[2025-02-17] MEDS: ELIQUIS 5 MG PO ×2 (08:44→19:46)
[2025-02-17] MEDS: ALDACTONE 25 MG PO (08:44)
[2025-02-17] MEDS: TOPROL XL 25 MG PO (08:44)
[2025-02-17] MEDS: ZYRTEC 10 MG PO (08:44)
[2025-02-17] MEDS: VITAMIN C 500 MG PO ×2 (08:44→19:46)
[2025-02-17] MEDS: QUESTRAN 4 GRAM PO (08:44)
[2025-02-17] MEDS: LYRICA 25 MG PO (08:44)
[2025-02-17] MEDS: NOVOLOG MIX 70/30 FLEXPEN 14 UNITS SC ×2 (08:45→17:03)
[2025-02-17] MEDS: LIDOCAINE 4% PATCH 2 PATCH TOPICAL (08:45)
[2025-02-17] MEDS: BenGay-Like 1 APPLIC TOPICAL ×3 (08:45→21:39)
[2025-02-17 08:57] VITALS: BP 118/70
--- NOTE | 2025-02-17 09:25 | W.PN.HOSP.TC ---
Today's Communication/Plan
-
dc Augmentin, once Fosfomycin
monitor rash
calamine lotion Benadryl prn itching
PT/OT
Glycemic control
Assessment / Plan
Assessment / Plan
Physical Exam
General: no acute distress, appears comfortable at this time
HEENT: Moist Mucous Membranes and PERRLA
Respiratory: Clear to Auscultation; Negative Wheezes, Rales or Rhonchi
Cardiac: Irregular Rhythm and Murmur
GI: Soft, Nontender, Normal Bowel Sounds, Hernia
Musculoskeletal: No Clubbing and No Edema
Skin: Warm and Dry, non-itchy painless rash on chest and abd as pictured above
Neuro: AOx3 conversant coherent
Psych: Calm
89F HTN, GERD, HLD, DM 2 presents with presyncope, found to have UTI and Afib.
TTE
CONCLUSIONS
Normal left ventricular size and function. Normal regional wall motion. Mild
concentric left ventricular hypertrophy. Left ventricular ejection fraction is
50-55% by visual assessment. Diastolic function indeterminate due to atrial
fibrillation.
Normal right ventricular size and function.
Moderate mitral regurgitation. Indexed LA volume is severely abnormal.
Aortic sclerosis without stenosis. Mild to moderate aortic regurgitation.
Compared to prior study dated 02/16/2013: mitral regurgitation was previously
mild and has worsened; aortic sclerosis and mild to moderate aortic
regurgitation are new.
UTI:
UA with greater than 100 WBC, 3+ LE
Reviewed previous culture data patient had Klebsiella most recently in urine, also in remote past Citrobacter and E. coli.
-received empiric IV Ceftriaxone, switched to unasyn, de-escalated to Augmentin d/c d/t possible adverse rxn rash, once fosfomycin completed abx treatment
-Urine cx pos for Aerococcus
-ID eval
Developed rash on chest and abd 02/17 non-itchy and painless (pictures above)
-possibly d/t high dose IV Mg infusion vs recent new abx Augmentin
-Augmentin discontinued as above
-monitor
Coag neg staph, staph Capitis blood cultures likely contaminants
-blood cultures repeated 02/14 - NGTD
Hypomagnesemia
-monitor and replete as necessary
Atrial fibrillation:
patient in and out of afib
-appreciate cardiology consult
-s/p TTE, results above
-new Eliquis, Metop XL, cont
HTN:
BP elevated continue home BP meds Lasix and spironolactone and adjust as needed
new Metoprolol as above
DM 2:
Patient takes 70/30 40 units in a.m. and 30 units in p.m - was ordered for 30 units BID here then dropped overnight
A1c is 6.4% - Dose lowered to prevent recurrence hypoglycemia
DM MOBILE SOLUTIONS ARCHITECT eval appreciated 70/30 14U BID
sliding scale
Chronic pain: Continue Lyrica and duloxetine
Lower back pain
-lidocaine patches
-bengay-like cream
Poor Sleep
-bedtime melatonin
Diarrhea: continue colestiple
DVT PPx Eliquis
Full code
Discussed with patient, patient's sister Madeleine and reggie Conway at bedside.
I spent a total of 45 minutes with the patient or on the floor. More than 50% of this time involved counseling and coordination of care.
Anticipated Discharge: 24 - 48 hours
Subjective/Interval History
-
Date of Service: February 17, 2025
No acute distress, resting comfortably in bed. Reports generalized weakness/fatigue. Patient also developed chest and abd rash possibly due to high dose Magnesium infusion vs recent new abx Augmentin. Denies itching at rash site. Stable
respiratory status on room air
Objective Data
-
Labs:
Laboratory Results
02/17/25
06:48
WBC 13.9 H
Hgb 11.7 L
Hct 35.9 L
Plt Count 200
Sodium 137
Potassium 4.5
Chloride 105
Carbon Dioxide 28
BUN 16
Creatinine 0.8
Glucose 127 H
Calcium 8.7
Vital Signs:
Vital Signs
Temp Pulse Resp BP Pulse Ox
97.8 F 93 17 118/70 96
02/17/25 08:57 02/17/25 08:57 02/17/25 08:57 02/17/25 08:57 02/17/25 08:57
I&O
02/16/25 02/17/25 02/18/25
06:59 06:59 06:59
Intake Total 1320 / 1320 1520 / 1520
Balance 1320 / 1320 1520 / 1520
[2025-02-17] MEDS: MAGNESIUM SULFATE 100 IV (10:56)
[2025-02-17 11:44] LABS: Glucose - Point of Care 113 mg/dl (70-99)
[2025-02-17 15:25] VITALS: BP 112/57
[2025-02-17 16:40] LABS: Glucose - Point of Care 110 mg/dl (70-99)
[2025-02-17] MEDS: BENADRYL ELIXIR 12.5 MG PO (17:01)
[2025-02-17] MEDS: MONUROL 3 GM PO (17:23)
[2025-02-17] MEDS: REMOVE LIDOCAINE PATCH 2 PATCH REMOVE (19:46)
[2025-02-17] MEDS: SENOKOT-S 1 TABLET PO (19:53)
[2025-02-17] MEDS: MIRALAX 17 GRAMS PO (19:53)
[2025-02-17] MEDS: MELATONIN 3 MG PO (21:39)
[2025-02-17] MEDS: LIPITOR 20 MG PO (21:39)
[2025-02-17] MEDS: QUESTRAN PO (21:39)
[2025-02-17 22:31] LABS: Glucose - Point of Care 150 mg/dl (70-99)
[2025-02-17 23:05] VITALS: BP 109/61
[2025-02-18 07:14] LABS: Hematocrit 35.6 % (37.0-47.0); Hemoglobin 11.6 g/dL (12.0-16.0); Mean Corp Hgb Conc. 32.6 g/dL (33.0-37.0); Mean Corpuscular Volume 100.8 fL (81.0-99.0); Platelet Count 206 10^3/uL (130-400); Red Cell Dist. Width 13.4 % (11.5-14.5)
--- NOTE | 2025-02-18 07:24 | W.PN.HOSP.TC ---
Today's Communication/Plan
-
PT/OT
monitor rash
Mg supplementation PO increased to BID
Discharge planning SNF rehab
Assessment / Plan
Assessment / Plan
Physical Exam
General: no acute distress, appears comfortable at this time
HEENT: Moist Mucous Membranes and PERRLA
Respiratory: Clear to Auscultation; Negative Wheezes, Rales or Rhonchi
Cardiac: Irregular Rhythm and Murmur
GI: Soft, Nontender, Normal Bowel Sounds, Hernia
Musculoskeletal: No Clubbing and No Edema
Skin: Warm and Dry, non-itchy painless rash on chest and abd as pictured above, also noted Left shoulder erythema/ecchymosis patient however notes that this has been chronic prior to admission after 'torn shoulder'
Neuro: AOx3 conversant coherent
Psych: Calm
89F HTN, GERD, HLD, DM 2 presents with presyncope, found to have UTI and Afib.
TTE
CONCLUSIONS
Normal left ventricular size and function. Normal regional wall motion. Mild
concentric left ventricular hypertrophy. Left ventricular ejection fraction is
50-55% by visual assessment. Diastolic function indeterminate due to atrial
fibrillation.
Normal right ventricular size and function.
Moderate mitral regurgitation. Indexed LA volume is severely abnormal.
Aortic sclerosis without stenosis. Mild to moderate aortic regurgitation.
Compared to prior study dated 02/16/2013: mitral regurgitation was previously
mild and has worsened; aortic sclerosis and mild to moderate aortic
regurgitation are new.
UTI:
UA with greater than 100 WBC, 3+ LE
Reviewed previous culture data patient had Klebsiella most recently in urine, also in remote past Citrobacter and E. coli.
-received empiric IV Ceftriaxone, switched to unasyn, de-escalated to Augmentin d/c d/t possible adverse rxn rash, once fosfomycin completed abx treatment
-Urine cx pos for Aerococcus
-ID eval appreciated
Developed rash on chest and abd 02/17 non-itchy and painless (pictures above)
-possibly d/t high dose IV Mg infusion vs recent new abx Augmentin
-Augmentin discontinued as above
-monitor, appears to be improving
Coag neg staph, staph Capitis blood cultures likely contaminants
-blood cultures repeated 02/14 - NGTD
Hypomagnesemia
-monitor and replete as necessary
Atrial fibrillation:
patient in and out of afib
-appreciate cardiology consult
-s/p TTE, results above
-new Eliquis, Metop XL, cont
HTN:
BP elevated continue home BP meds Lasix and spironolactone and adjust as needed
new Metoprolol as above
DM 2:
Patient takes 70/30 40 units in a.m. and 30 units in p.m - was ordered for 30 units BID here then dropped overnight
A1c is 6.4% - Dose lowered to prevent recurrence hypoglycemia
DM LICENSING SERVICES CLERK eval appreciated 70/30 14U BID
sliding scale
Chronic pain: Continue Lyrica and duloxetine
Lower back pain
-lidocaine patches
-bengay-like cream
Poor Sleep
-bedtime melatonin
Diarrhea: continue colestiple
DVT PPx Eliquis
Full code
Discussed with patient, patient's sister Madeleine and niece Zoraida at bedside.
I spent a total of 45 minutes with the patient or on the floor. More than 50% of this time involved counseling and coordination of care.
Anticipated Discharge: 24 - 48 hours
Subjective/Interval History
-
Date of Service: February 18, 2025
Rash tremors weakness improving. Dysuria resolved. Overall reports feeling well. Denies new acute issues at this time.
Objective Data
-
Labs:
Laboratory Results
02/18/25
06:22
WBC 10.6
Hgb 11.6 L
Hct 35.6 L
Plt Count 206
Sodium Pending
Potassium Pending
Chloride Pending
Carbon Dioxide Pending
BUN Pending
Creatinine Pending
Glucose Pending
Calcium Pending
Vital Signs:
Vital Signs
Temp Pulse Resp BP Pulse Ox
97.8 F 74 16 109/61 96
02/17/25 23:05 02/17/25 23:05 02/17/25 23:05 02/17/25 23:05 02/17/25 23:05
I&O
02/17/25 02/18/25 02/19/25
06:59 06:59 06:59
Intake Total 1520 / 1520 960 / 960
Balance 1520 / 1520 960 / 960
[2025-02-18 07:32] LABS: Glucose - Point of Care 104 mg/dl (70-99)
[2025-02-18 07:33] LABS: Blood Urea Nitrogen 16 mg/dl (7-17); Calcium 8.3 mg/dl (8.4-10.2); Carbon Dioxide 27 mmol/L (22-30); Chloride 102 mmol/L (98-107); Estimated Creatinine Clearance 44 ml/min; Glucose 109 mg/dl (70-99); Magnesium 1.6 mg/dl (1.6-2.3); Potassium 4.2 mmol/L (3.5-5.1); Sodium 134 mmol/L (135-145); eGFR > 60.00
[2025-02-18 08:00] VITALS: BP 132/70
[2025-02-18] MEDS: QUESTRAN 4 GRAM PO ×2 (09:12→21:35)
[2025-02-18] MEDS: BenGay-Like 1 APPLIC TOPICAL ×3 (09:12→21:35)
[2025-02-18] MEDS: LIDOCAINE 4% PATCH 2 PATCH TOPICAL (09:12)
[2025-02-18] MEDS: CYMBALTA DELAYED RELEASE 60 MG PO (09:13)
[2025-02-18] MEDS: LYRICA 25 MG PO (09:13)
[2025-02-18] MEDS: TOPROL XL 25 MG PO (09:13)
[2025-02-18] MEDS: ALDACTONE 25 MG PO (09:13)
[2025-02-18] MEDS: ELIQUIS 5 MG PO ×2 (09:13→19:26)
[2025-02-18] MEDS: VITAMIN D3 (cholecalciferol) 50 MCG PO (09:13)
[2025-02-18] MEDS: MAGNESIUM OXIDE 500 MG PO ×2 (09:13→19:26)
[2025-02-18] MEDS: ZYRTEC 10 MG PO (09:13)
[2025-02-18] MEDS: B COMPLEX w/VITAMIN C 1 CAPLET PO (09:13)
[2025-02-18] MEDS: VITAMIN C 500 MG PO ×2 (09:14→19:29)
[2025-02-18] MEDS: NOVOLOG MIX 70/30 FLEXPEN 14 UNITS SC ×2 (09:14→16:45)
[2025-02-18] MEDS: NOVOLOG FLEXPEN-LOW RESISTANCE SC (09:14)
[2025-02-18 12:08] LABS: Glucose - Point of Care 196 mg/dl (70-99)
[2025-02-18] MEDS: NOVOLOG FLEXPEN-LOW RESISTANCE 1 UNITS SC ×2 (12:18→16:46)
--- NOTE | 2025-02-18 13:20 | CON.ID ---
Addendum entered and electronically signed by Julio Hamlin DO 02/19/25 13:34:
Correction : Assessment should read 'Suspected urinary tract infection secondary to Aerococcus.'
Original Note:
Consultation
-
Date/Time Consultation Requested: 02/17/2025 1502
Date/Time Consultation Performed: 02/18/2025 1315
Requesting Provider: Dr. Mckinney
Performing Provider: Dr. Hamlin
Reason for Consultation: Urinary tract infection
Chief Complaint / Past History
History of Present Illness
Wendy Whipple is an 89-year-old female being evaluated at request of Dr. Mckinney in regards to urinary tract infection with several antibiotic allergies. History is obtained from chart review, along with patient interview.
The patient has a significant past medical history of DM and hypertension and presented to [facility] on 02/12/2025 after developing dizziness and lightheadedness with associated nausea when she sat up from a laying position. At admission,
the daughter noted that the patient appeared unwell for the past 3 weeks or so, with diarrhea.
Hospital course has been significant for finding of pyuria.
Urine culture ultimately grew Aerococcus, and the patient was transition to Augmentin, but developed reported rash on the abdomen, and Infectious Diseases has been consulted for further antibiotic recommendations. After discussing the case with The
hospitalist, patient was given a single dose fosfomycin 3 gm p.o. Additionally, the patient has grown out Staphylococcus capitis on 2 separate blood cultures, although the same species are different.
At present, the patient reports that prior dysuria has improved/abated. She denies any fevers or chills. She denies any current pruritus.
Past History
Additional Past Medical History:
GERD
HTN
HLD
DM
Hiatal hernia
IBS
Diverticulosis
Arthritis
Additional Past Surgical History:
Colon resection
Right knee replacement
Laminectomy
Left carpal tunnel release
Allergy History:
amoxicillin (From Augmentin) Allergy (Intermediate, Unverified 02/17/25 15:31)
Rash
clavulanic acid (From Augmentin) Allergy (Intermediate, Unverified 02/17/25 15:31)
Rash
ciprofloxacin Allergy (Verified 02/12/25 14:08)
Swelling
hydrocodone Allergy (Verified 02/12/25 14:08)
Swelling
Quinolones Allergy (Verified 02/15/25 15:53)
THROAT CONSTRICTION
Medications Reviewed: Yes
Current Antibiotics:
Fosfomycin
Social History
Tobacco: Non-Smoker
Alcohol: None
Drug: None
Living: Skilled Nursing
Employment: Retired
Family History
Family History: Not Pertinent
Review of Systems
Vital Signs
Temp Pulse Resp BP Pulse Ox
98.3 F 86 16 132/70 98
02/18/25 08:00 02/18/25 08:00 02/18/25 08:00 02/18/25 08:00 02/18/25 08:00
Physical Exam
Physical Exam
Constitutional: No Acute Distress, Comfortable, Chronically Ill and Non-toxic
Eyes: No Conjunctival Hemorrhage and Sclera Anicteric
Oral: No Thrush and No Ulcers
Cardiovascular: S1/S2; Negative S3/S4
Pulmonary: Non Labored
Gastrointestinal: Soft, Non Tender and Normal Bowel Sounds
Genito-Urinary: Negative Ramirez
Extremities: Edema; Negative Cyanosis, Erythema or Splinter Hemorrhage
Neurological: Awake and Alert
Psychological: Calm
Lab / Diagnostic Study Results
02/18/25 06:22
02/18/25 06:22
Abs Immat Gran (auto) 0.0 10^3/uL (0-0.05) 02/14/25 06:04
Absolute Neuts (auto) 3.5 10^3/uL (1.4-6.5) 02/14/25 06:04
Absolute Lymphs (auto) 2.0 10^3/uL (1.2-3.4) 02/14/25 06:04
Absolute Monos (auto) 0.6 10^3/uL (0.1-0.6) 02/14/25 06:04
Absolute Basos (auto) 0.0 10^3/uL (0-0.2) 02/14/25 06:04
Immature Gran % 0.3 % (0-0.5) 02/14/25 06:04
Neutrophils % 54.2 % (42.2-75.2) 02/14/25 06:04
Lymphocytes % 31.5 % (20.5-51.1) 02/14/25 06:04
Monocytes % 9.0 % (1.7-9.3) 02/14/25 06:04
Eosinophils % 4.4 % (0-6) 02/14/25 06:04
Basophils % 0.6 % (0-2) 02/14/25 06:04
Ur Squamous Epith Cells /LPF (Few) 02/12/25 18:05
Microbiology Results
Micro:
02/12/25 00:23 Blood Culture - Final
Blood/Venous Staphylococcus capitis
Gram Stain - Final
02/14/25 14:16 Blood Culture - Preliminary
Blood/Venous No Growth in 72 hours- Final report to follow
02/12/25 21:20 Blood Culture - Final
Blood/Venous Staphylococcus capitis
Gram Stain - Final
02/12/25 18:05 Urine Culture - Final
Urine Aerococcus Species
02/13/25 03:06 MRSA Screen - Final
Nose No Methicillin Resistant Staphylococcus aureus isolated.
Assessment / Plan
Suspected urinary tract infection secondary to Enterococcus
Positive blood cultures with staph capitis; suspect contamination given different subspecies recovered.
Leukocytosis; resolved
GERD
HTN
HLD
DM
Hiatal hernia
IBS
Diverticulosis
Arthritis
Recommendations:
Patient has received dose of fosfomycin. No further antibiotics necessary at this point.
Maintain good fluid hydration. Frequent urination to prevent buildup of bioburden.
Follow-up for development of recurrent infection, and if so, would refer to Urology for further evaluation.
Care Review
Plan reviewed with: Physician (Hospitalist)
[2025-02-18 13:30] LABS: Iron 51 ug/dl (37-170)
[2025-02-18 13:40] LABS: Total Iron Binding Capacity 202 ug/dl (265-497)
[2025-02-18 14:05] LABS: Ferritin 177.0 ng/ml (11.1-264.0)
[2025-02-18 14:37] LABS: Folate 4.9 ng/ml (2.76-20); Vitamin B12 909 pg/ml (239-931)
[2025-02-18 15:00] VITALS: BP 117/55
[2025-02-18 16:37] LABS: Glucose - Point of Care 189 mg/dl (70-99)
[2025-02-18] MEDS: REMOVE LIDOCAINE PATCH 2 PATCH REMOVE (19:27)
[2025-02-18] MEDS: DESENEX/MITRAZOL/ZEASORB 1 APPLIC TOPICAL (19:42)
[2025-02-18] MEDS: CALAMINE LOTION 180 ML TOPICAL (19:42)
[2025-02-18 21:07] LABS: Glucose - Point of Care 109 mg/dl (70-99)
[2025-02-18] MEDS: LIPITOR 20 MG PO (21:35)
[2025-02-18] MEDS: MELATONIN 3 MG PO (21:35)
[2025-02-18] MEDS: BENADRYL ELIXIR 12.5 MG PO (21:39)
[2025-02-18 23:00] VITALS: BP 122/52
[2025-02-19] MEDS: LIDOCAINE 4% PATCH 2 PATCH TOPICAL (07:54)
[2025-02-19] MEDS: CYMBALTA DELAYED RELEASE 60 MG PO (07:54)
[2025-02-19] MEDS: MAGNESIUM OXIDE 500 MG PO ×3 (07:54→22:29)
[2025-02-19] MEDS: B COMPLEX w/VITAMIN C 1 CAPLET PO (07:54)
[2025-02-19] MEDS: QUESTRAN 4 GRAM PO ×2 (07:54→22:28)
[2025-02-19] MEDS: ELIQUIS 5 MG PO ×2 (07:55→20:25)
[2025-02-19] MEDS: ZYRTEC 10 MG PO (07:55)
[2025-02-19] MEDS: LYRICA 25 MG PO (07:55)
[2025-02-19] MEDS: VITAMIN C 500 MG PO ×2 (07:55→20:25)
[2025-02-19] MEDS: TOPROL XL 25 MG PO (07:55)
[2025-02-19] MEDS: BenGay-Like 1 APPLIC TOPICAL ×3 (07:55→22:28)
[2025-02-19] MEDS: ALDACTONE 25 MG PO (07:55)
[2025-02-19] MEDS: VITAMIN D3 (cholecalciferol) 50 MCG PO (07:55)
--- NOTE | 2025-02-19 07:56 | PN.DE.MGMTRT ---
Insulin Management
- -
02/19/2025 Diabetes Management Consult Follow up
Patient admitted 02/12 with B/P problem, dizziness, lightheadedness, nausea, found to have UTI. Diabetes management consult 02/16. PMH GERD, HCL, diabetes. Prior to admission was taking 70/30 insulin 30 units with breakfast and 40 units with
dinner with a sliding scale and Trulicity weekly. A1C is 6.3% , cr .9, eGFR > 60.
Patient is awake alert and oriented able to discuss diabetes care.
70/30 insulin 14 units BID resumed 02/16. Glucose range 104 to 196, acceptable for patient age. Will make no change to 70/30 BID dose of 14 units with low corrective insulin.
Discussed with nurse.
Will follow
Diabetes History
- -
Type of Diabetes: 2 requiring insulin
Pre-Admission Diabetes Regimen
Lab Results
Hemoglobin A1c 6.4 % (4.0-5.6) H 02/13/25 07:00
Insulin Pump Settings
IP Diabetes Regimen
02/18/25 02/18/25 02/18/25
12:07 16:36 21:05
POC Glucose 196 H 189 H 109 H
Patient Education
[2025-02-19] MEDS: NOVOLOG FLEXPEN-LOW RESISTANCE SC (07:57)
[2025-02-19] MEDS: LASIX 20 MG PO (07:57)
[2025-02-19] MEDS: NOVOLOG MIX 70/30 FLEXPEN 14 UNITS SC ×2 (07:58→16:51)
[2025-02-19 07:59] VITALS: BP 136/76
[2025-02-19 08:13] LABS: Glucose - Point of Care 145 mg/dl (70-99)
[2025-02-19 08:56] LABS: Hematocrit 33.5 % (37.0-47.0); Hemoglobin 11.2 g/dL (12.0-16.0); Mean Corp Hgb Conc. 33.4 g/dL (33.0-37.0); Mean Corpuscular Volume 97.7 fL (81.0-99.0); Platelet Count 201 10^3/uL (130-400); Red Cell Dist. Width 13.2 % (11.5-14.5)
--- NOTE | 2025-02-19 09:12 | W.PN.HOSP.TC ---
Today's Communication/Plan
-
Monitor Rash
replete Mg
PT/OT
Check CT Lt shoulder
Assessment / Plan
Assessment / Plan
Physical Exam
General: no acute distress, appears comfortable at this time
HEENT: Moist Mucous Membranes and PERRLA
Respiratory: Clear to Auscultation; Negative Wheezes, Rales or Rhonchi
Cardiac: Irregular Rhythm and Murmur
GI: Soft, Nontender, Normal Bowel Sounds, Hernia
Musculoskeletal: No Clubbing and No Edema
Skin: Warm and Dry, non-itchy painless rash on chest and abd improving, also noted Left shoulder erythema/ecchymosis
Neuro: AOx3 conversant coherent
Psych: Calm
89F HTN, GERD, HLD, DM 2 presents with presyncope, found to have UTI and Afib.
TTE
CONCLUSIONS
Normal left ventricular size and function. Normal regional wall motion. Mild
concentric left ventricular hypertrophy. Left ventricular ejection fraction is
50-55% by visual assessment. Diastolic function indeterminate due to atrial
fibrillation.
Normal right ventricular size and function.
Moderate mitral regurgitation. Indexed LA volume is severely abnormal.
Aortic sclerosis without stenosis. Mild to moderate aortic regurgitation.
Compared to prior study dated 02/16/2013: mitral regurgitation was previously
mild and has worsened; aortic sclerosis and mild to moderate aortic
regurgitation are new.
UTI:
UA with greater than 100 WBC, 3+ LE
Reviewed previous culture data patient had Klebsiella most recently in urine, also in remote past Citrobacter and E. coli.
-received empiric IV Ceftriaxone, switched to unasyn, de-escalated to Augmentin d/c d/t possible adverse rxn rash, once fosfomycin completed abx treatment
-Urine cx pos for Aerococcus
-ID eval appreciated
Developed rash on chest and abd 02/17 non-itchy and painless (pictures above)
-possibly d/t high dose IV Mg infusion vs recent new abx Augmentin
-Augmentin discontinued as above
-monitor, appears to be improving
Left Shoulder Ecchymosis developed over weekend 02/17-02/18, restricted range of motion
check CT Lt Shoulder
Coag neg staph, staph Capitis blood cultures likely contaminants
-blood cultures repeated 02/14 - NGTD
Hypomagnesemia
-monitor and replete as necessary
Atrial fibrillation:
patient in and out of afib
-appreciate cardiology consult
-s/p TTE, results above
-new Eliquis, Metop XL, cont
HTN:
BP elevated continue home BP meds Lasix and spironolactone and adjust as needed
new Metoprolol as above
DM 2:
Patient takes 70/30 40 units in a.m. and 30 units in p.m - was ordered for 30 units BID here then dropped overnight
A1c is 6.4% - Dose lowered to prevent recurrence hypoglycemia
DM [employer]CTION[employer] SUPERVISING COOK eval appreciated 70/30 14U BID
sliding scale
Chronic pain: Continue Lyrica and duloxetine
Lower back pain
-lidocaine patches
-bengay-like cream
Poor Sleep
-bedtime melatonin
Diarrhea: continue colestipol patient's own med (daughter Debra bringing in)
DVT PPx Eliquis
Full code
Discussed with patient, patient's [id number] Nuria, and daughter Debra
I spent a total of 45 minutes with the patient or on the floor. More than 50% of this time involved counseling and coordination of care.
Anticipated Discharge: 24 - 48 hours
Subjective/Interval History
-
Date of Service: February 19, 2025
No acute distress, overall reports feeling well, though having more frequent bowel movements. Reports weakness and tremors improved.
Objective Data
-
Labs:
Laboratory Results
02/19/25
08:07
WBC 9.2
Hgb 11.2 L
Hct 33.5 L
Plt Count 201
Sodium Pending
Potassium Pending
Chloride Pending
Carbon Dioxide Pending
BUN Pending
Creatinine Pending
Glucose Pending
Calcium Pending
Vital Signs:
Vital Signs
Temp Pulse Resp BP Pulse Ox
97.7 F 98 14 136/76 97
02/19/25 07:59 02/19/25 07:59 02/19/25 07:59 02/19/25 07:59 02/19/25 07:59
I&O
02/18/25 02/19/25 02/20/25
06:59 06:59 06:59
Intake Total 960 / 960 960 / 960
Balance 960 / 960 960 / 960
[2025-02-19 09:26] LABS: Blood Urea Nitrogen 15 mg/dl (7-17); Calcium 8.5 mg/dl (8.4-10.2); Carbon Dioxide 26 mmol/L (22-30); Chloride 100 mmol/L (98-107); Estimated Creatinine Clearance 50 ml/min; Glucose 132 mg/dl (70-99); Magnesium 1.1 mg/dl (1.6-2.3); Potassium 4.1 mmol/L (3.5-5.1); Sodium 132 mmol/L (135-145); eGFR > 60.00
[2025-02-19 11:17] LABS: Glucose - Point of Care 152 mg/dl (70-99)
[2025-02-19] MEDS: NOVOLOG FLEXPEN-LOW RESISTANCE 1 UNITS SC ×2 (11:22→16:50)
--- NOTE | 2025-02-19 13:29 | W.PN.ID1 ---
Date of Service
Date of Service: February 19, 2025
Today's Communication
Sign off
Assessment / Plan
Suspected urinary tract infection secondary to Aerococcus
Positive blood cultures with staph capitis; suspect contamination given different subspecies recovered.
Leukocytosis; resolved
GERD
HTN
HLD
DM
Hiatal hernia
IBS
Diverticulosis
Arthritis
Recommendations:
Patient has received dose of fosfomycin. No further antibiotics necessary at this point.
Maintain good fluid hydration. Frequent urination to prevent buildup of bioburden.
Follow-up for development of recurrent infection, and if so, would refer to Urology for further evaluation.
Little more to offer from a Infectious Disease standpoint.
Will see again at your request.
Chief Complaint
-: UTI
Subjective / Review of Systems
Review of Systems: No Fever, No Chills and No Dysuria
Vital Signs / Physical Exam
Vital Signs
Vital Signs
Temp Pulse Resp BP Pulse Ox
97.7 F 98 14 136/76 97
02/19/25 07:59 02/19/25 07:59 02/19/25 07:59 02/19/25 07:59 02/19/25 07:59
Physical Exam
Constitutional: No Acute Distress, Comfortable, Chronically Ill and Non-toxic
Cardiovascular: S1/S2; Negative S3/S4
Pulmonary: Non Labored
Gastrointestinal: Soft, Non Tender and Non Distended
Neurological: Awake and Alert
Psychological: Calm
Objective Data
Lab Data
Lab Results
02/19/25 08:07
02/19/25 08:07
Estimated Creat Clear 50 ml/min 02/19/25 08:07
Total Bilirubin 1.1 mg/dl (0.2-1.3) 02/12/25 14:21
AST 26 U/L (14-36) 02/12/25 14:21
ALT 11 U/L (0-35) 02/12/25 14:21
Alkaline Phosphatase 62 U/L (38-126) 02/12/25 14:21
Most recent labs reviewed.
Micro Results:
02/19/25 09:21 MRSA Screen - Pending
Nose
02/14/25 14:16 Blood Culture - Preliminary
Blood/Venous No Growth in 4 days- Final report to follow
02/12/25 00:23 Blood Culture - Final
Blood/Venous Staphylococcus capitis
Gram Stain - Final
02/12/25 21:20 Blood Culture - Final
Blood/Venous Staphylococcus capitis
Gram Stain - Final
02/12/25 18:05 Urine Culture - Final
Urine Aerococcus Species
02/13/25 03:06 MRSA Screen - Final
Nose No Methicillin Resistant Staphylococcus aureus isolated.
[2025-02-19] MEDS: MAGNESIUM SULFATE 50 IV (14:22)
[2025-02-19 15:41] VITALS: BP 106/63
[2025-02-19 16:50] LABS: Glucose - Point of Care 168 mg/dl (70-99)
[2025-02-19] MEDS: REMOVE LIDOCAINE PATCH 2 PATCH REMOVE (20:24)
[2025-02-19 21:12] LABS: Glucose - Point of Care 167 mg/dl (70-99)
[2025-02-19] MEDS: LIPITOR 20 MG PO (22:29)
[2025-02-19] MEDS: MELATONIN 3 MG PO (22:29)
[2025-02-19 23:04] VITALS: BP 136/73
--- NOTE | 2025-02-20 02:25 | DOWNTIME ---
There was a [employer] Downtime on 02/20/2025 from 0100 to 02/20/2025 at 0220. Downtime documentation of patient's care, including medication administrations, has been reconciled in the electronic record per guidelines. Refer to the
patient's paper chart under the miscellaneous tab to see printed paper medication records and downtime forms.
--- NOTE | 2025-02-20 07:53 | PN.DE.MGMTRT ---
Insulin Management
- -
02/20/2025 Diabetes Management Consult Follow up
Patient admitted 02/12 with B/P problem, dizziness, lightheadedness, nausea, found to have UTI. Diabetes management consult 02/16. PMH GERD, HCL, diabetes. Prior to admission was taking 70/30 insulin 30 units with breakfast and 40 units with
dinner with a sliding scale and Trulicity weekly. A1C is 6.3% , cr .9, eGFR > 60.
Patient is awake alert and oriented able to discuss diabetes care.
70/30 insulin 14 units BID resumed 02/16. Glucose range 145 to 168, fasting 125 this AM, acceptable for patient age. Will make no change to 70/30 BID dose of 14 units with low corrective insulin.
Discussed with nurse.
Will follow
Diabetes History
- -
Type of Diabetes: 2 requiring insulin
Pre-Admission Diabetes Regimen
02/19/25
08:07
Creatinine 0.7
Lab Results
Hemoglobin A1c 6.4 % (4.0-5.6) H 02/13/25 07:00
Insulin Pump Settings
IP Diabetes Regimen
02/19/25 02/19/25 02/19/25
08:07 08:12 11:16
Glucose 132 H
POC Glucose 145 H 152 H
02/19/25 02/19/25
16:48 21:10
Glucose
POC Glucose 168 H 167 H
Meal type: Lunch
Meal type: Breakfast
Amount consumed: 25%
Amount consumed: 25%
Patient Education
[2025-02-20 08:00] LABS: Glucose - Point of Care 125 mg/dl (70-99)
[2025-02-20 08:04] LABS: Hematocrit 35.1 % (37.0-47.0); Hemoglobin 11.5 g/dL (12.0-16.0); Mean Corp Hgb Conc. 32.8 g/dL (33.0-37.0); Mean Corpuscular Volume 99.2 fL (81.0-99.0); Platelet Count 217 10^3/uL (130-400); Red Cell Dist. Width 13.3 % (11.5-14.5)
[2025-02-20] MEDS: VITAMIN D3 (cholecalciferol) 50 MCG PO (08:05)
[2025-02-20] MEDS: NOVOLOG FLEXPEN-LOW RESISTANCE SC ×2 (08:05→12:20)
[2025-02-20] MEDS: B COMPLEX w/VITAMIN C 1 CAPLET PO (08:06)
[2025-02-20] MEDS: ELIQUIS 5 MG PO ×2 (08:06→20:51)
[2025-02-20] MEDS: VITAMIN C 500 MG PO ×2 (08:06→20:51)
[2025-02-20] MEDS: ZYRTEC 10 MG PO (08:06)
[2025-02-20] MEDS: TOPROL XL 25 MG PO (08:06)
[2025-02-20] MEDS: MAGNESIUM OXIDE 500 MG PO ×3 (08:06→21:35)
[2025-02-20] MEDS: CYMBALTA DELAYED RELEASE 60 MG PO (08:06)
[2025-02-20 08:07] VITALS: BP 118/68
[2025-02-20] MEDS: BenGay-Like 1 APPLIC TOPICAL ×3 (08:07→21:34)
[2025-02-20] MEDS: ALDACTONE 25 MG PO (08:07)
[2025-02-20] MEDS: LYRICA 25 MG PO (08:07)
[2025-02-20] MEDS: NOVOLOG MIX 70/30 FLEXPEN 14 UNITS SC ×2 (08:08→16:54)
[2025-02-20] MEDS: LIDOCAINE 4% PATCH 2 PATCH TOPICAL (08:08)
[2025-02-20 08:31] LABS: Blood Urea Nitrogen 15 mg/dl (7-17); Calcium 8.5 mg/dl (8.4-10.2); Carbon Dioxide 32 mmol/L (22-30); Chloride 98 mmol/L (98-107); Estimated Creatinine Clearance 50 ml/min; Glucose 106 mg/dl (70-99); Magnesium 1.5 mg/dl (1.6-2.3); Potassium 4.0 mmol/L (3.5-5.1); Sodium 135 mmol/L (135-145); eGFR > 60.00
--- NOTE | 2025-02-20 09:41 | W.PN.HOSP.TC ---
Today's Communication/Plan
-
Replete Magnesium
Monitor rash
out of bed to chair
PT/OT
discharge planning SNF rehab
Assessment / Plan
Assessment / Plan
Physical Exam
General: no acute distress, appears comfortable at this time
HEENT: Moist Mucous Membranes and PERRLA
Respiratory: Clear to Auscultation; Negative Wheezes, Rales or Rhonchi
Cardiac: Irregular Rhythm and Murmur
GI: Soft, Nontender, Normal Bowel Sounds, Hernia
Musculoskeletal: No Clubbing and No Edema, restricted range of motion Left shoulder d/t pain
Skin: Warm and Dry, itching rash on chest and abd fading/improving, also noted Left shoulder erythema/ecchymosis improving as well
Neuro: AOx3 conversant coherent
Psych: Calm
89F HTN, GERD, HLD, DM 2 presents with presyncope, found to have UTI and Afib.
TTE
CONCLUSIONS
Normal left ventricular size and function. Normal regional wall motion. Mild
concentric left ventricular hypertrophy. Left ventricular ejection fraction is
50-55% by visual assessment. Diastolic function indeterminate due to atrial
fibrillation.
Normal right ventricular size and function.
Moderate mitral regurgitation. Indexed LA volume is severely abnormal.
Aortic sclerosis without stenosis. Mild to moderate aortic regurgitation.
Compared to prior study dated 02/16/2013: mitral regurgitation was previously
mild and has worsened; aortic sclerosis and mild to moderate aortic
regurgitation are new.
UTI:
UA with greater than 100 WBC, 3+ LE
Reviewed previous culture data patient had Klebsiella most recently in urine, also in remote past Citrobacter and E. coli.
-received empiric IV Ceftriaxone, switched to unasyn, de-escalated to Augmentin d/c d/t possible adverse rxn rash, once fosfomycin completed abx treatment
-Urine cx pos for Aerococcus
-ID eval appreciated
Developed rash on chest and abd 02/17 non-itchy and painless (pictures above)
-possibly d/t high dose IV Mg infusion vs recent new abx Augmentin
-Augmentin discontinued as above
-rash continues to fade/improve
-itching prn calamine lotion, benadryl
Left Shoulder Ecchymosis developed over weekend 02/17-02/18, restricted range of motion
CT Left shoulder noted no acute fractures/dislocation, noted severe subacromial-subdeltoid bursitis.
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
Coag neg staph, staph Capitis blood cultures likely contaminants
-blood cultures repeated 02/14 - NGTD
Hypomagnesemia
-monitor and replete as necessary
-Mag oxide 500 mg TID
Atrial fibrillation:
patient in and out of afib
-appreciate cardiology consult
-s/p TTE, results above
-new Eliquis, Metop XL, cont
HTN:
continue home BP meds Lasix and spironolactone
new Metoprolol as above
monitor and titrate antihypertensive regimen as necessary
DM 2:
Patient takes 70/30 40 units in a.m. and 30 units in p.m - was ordered for 30 units BID here then dropped overnight
A1c is 6.4% - Dose lowered to prevent recurrence hypoglycemia
DM SECURED ENTRANCE MONITOR eval appreciated 70/30 14U BID
sliding scale
Chronic pain: Continue Lyrica and duloxetine
Lower back pain
-lidocaine patches
-bengay-like cream
Poor Sleep
-improved with bedtime melatonin
DVT PPx Eliquis
Full code
Discussed with patient and pt's daughter Debra
I spent a total of 45 minutes with the patient or on the floor. More than 50% of this time involved counseling and coordination of care.
Anticipated Discharge: Within 24 hours
Subjective/Interval History
-
Date of Service: February 20, 2025
No acute distress resting comfortably in bed. Rash itching but continues to fade. Itching manageable with prn calamine lotion and benadryl. Bruising left shoulder also continues to improve. Overall reports feeling well.
Objective Data
-
Labs:
Laboratory Results
02/20/25
07:08
WBC 8.4
Hgb 11.5 L
Hct 35.1 L
Plt Count 217
Sodium 135
Potassium 4.0
Chloride 98
Carbon Dioxide 32 H
BUN 15
Creatinine 0.7
Glucose 106 H
Calcium 8.5
Vital Signs:
Vital Signs
Temp Pulse Resp BP Pulse Ox
98.5 F 79 17 118/68 93
02/20/25 08:07 02/20/25 08:07 02/20/25 08:07 02/20/25 08:07 02/20/25 08:07
I&O
02/19/25 02/20/25 02/21/25
06:59 06:59 06:59
Intake Total 960 / 960 480 / 480
Balance 960 / 960 480 / 480
[2025-02-20] MEDS: MAGNESIUM SULFATE 100 IV (09:48)
[2025-02-20] MEDS: QUESTRAN 4 GRAM PO ×2 (09:54→20:51)
[2025-02-20 12:13] LABS: Glucose - Point of Care 131 mg/dl (70-99)
--- NOTE | 2025-02-20 14:30 | CM ---
CM reviewed chart, plan remains [facility] pending bed availability/day of discharge. Patient declined OT today and PT 02/16, will need updated PT/OT notes for auth. CM will continue to follow for all discharge planning needs.
Plan; [facility] pending bed availability, will need auth
[2025-02-20 15:10] VITALS: BP 138/75
[2025-02-20 15:53] VITALS: BP 125/60; BP 145/85; PULSE 75; O2SAT 97
--- NOTE | 2025-02-20 16:51 | W.PN.UPDATE ---
Update Note
Progress Note Update
Full consult dictated. Patient is a 89 yo female seen for evaluation after request for consult. Patient admitted and diagnosed with a UTI. ID consulted. Patient started recently on Eliquis for afib. Denies trauma but has left shoulder
ecchymosis. Reports pain with ROM. CT scan ordered by medical team and revealed severe OA of the shoulder joint with evidence of high riding humeral head (indicating chronic RTC tear) and significant bursitis. Bursitis is likely secondary to
hemarthrosis which led to ecchymosis. No fractures noted on CT scan. On PE, no signs of infection. Limited ROM secondary to hemarthrosis, OA and chronic RTC tear. No surgical intervention necessary for her left shoulder. Hemarthrosis should
resolve over weeks to months. Patient can followup in the office in the future if further shoulder concerns but do not believe that she would be a good candidate for elective reverse shoulder replacement. Please call with any other orthopedic
concerns.
[2025-02-20 16:54] LABS: Glucose - Point of Care 187 mg/dl (70-99)
[2025-02-20] MEDS: NOVOLOG FLEXPEN-LOW RESISTANCE 1 UNITS SC (16:55)
[2025-02-20 17:06] VITALS: BP 138/75
[2025-02-20 20:46] VITALS: BP 137/81
[2025-02-20] MEDS: REMOVE LIDOCAINE PATCH 2 PATCH REMOVE (20:54)
[2025-02-20 21:04] LABS: Glucose - Point of Care 211 mg/dl (70-99)
[2025-02-20] MEDS: MELATONIN 3 MG PO (21:35)
[2025-02-20] MEDS: LIPITOR 20 MG PO (21:35)
[2025-02-20 23:00] VITALS: BP 136/62
[2025-02-21 07:16] VITALS: BP 127/74
--- NOTE | 2025-02-21 07:24 | W.PN.HOSP.TC ---
Today's Communication/Plan
-
Medically stable for discharge SNF rehab pending insurance auth and bed availability
Assessment / Plan
Assessment / Plan
Physical Exam
General: no acute distress, appears comfortable at this time
HEENT: Moist Mucous Membranes and PERRLA
Respiratory: Clear to Auscultation; Negative Wheezes, Rales or Rhonchi
Cardiac: Irregular Rhythm and Murmur
GI: Soft, Nontender, Normal Bowel Sounds, Hernia
Musculoskeletal: No Clubbing and No Edema, restricted range of motion Left shoulder d/t pain
Skin: Warm and Dry, itching rash on chest and abd fading/improving, also noted Left shoulder erythema/ecchymosis improving as well
Neuro: AOx3 conversant coherent
Psych: Calm
89F HTN, GERD, HLD, DM 2 presents with presyncope, found to have UTI and Afib.
TTE
CONCLUSIONS
Normal left ventricular size and function. Normal regional wall motion. Mild
concentric left ventricular hypertrophy. Left ventricular ejection fraction is
50-55% by visual assessment. Diastolic function indeterminate due to atrial
fibrillation.
Normal right ventricular size and function.
Moderate mitral regurgitation. Indexed LA volume is severely abnormal.
Aortic sclerosis without stenosis. Mild to moderate aortic regurgitation.
Compared to prior study dated 02/16/2013: mitral regurgitation was previously
mild and has worsened; aortic sclerosis and mild to moderate aortic
regurgitation are new.
UTI:
UA with greater than 100 WBC, 3+ LE
Reviewed previous culture data patient had Klebsiella most recently in urine, also in remote past Citrobacter and E. coli.
-received empiric IV Ceftriaxone, switched to unasyn, de-escalated to Augmentin d/c d/t possible adverse rxn rash, once fosfomycin completed abx treatment
-Urine cx pos for Aerococcus
-ID eval appreciated
Developed rash on chest and abd 02/17 non-itchy and painless (pictures above)
-possibly d/t high dose IV Mg infusion vs recent new abx Augmentin
-Augmentin discontinued as above
-rash continues to fade/improve
-itching prn calamine lotion, benadryl
Bed Rash
-Desenex powder BID
Left Shoulder Ecchymosis developed over weekend 02/17-02/18, restricted range of motion
CT Left shoulder noted no acute fractures/dislocation, noted severe subacromial-subdeltoid bursitis.
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
Coag neg staph, staph Capitis blood cultures likely contaminants
-blood cultures repeated 02/14 - NGTD
Hypomagnesemia
-monitor and replete as necessary
-Mag oxide 500 mg TID
Atrial fibrillation:
patient in and out of afib
-appreciate cardiology consult
-s/p TTE, results above
-new Eliquis, Metop XL, cont
HTN:
continue home BP meds Lasix and spironolactone
new Metoprolol as above
monitor and titrate antihypertensive regimen as necessary
DM 2:
Patient takes 70/30 40 units in a.m. and 30 units in p.m - was ordered for 30 units BID here then dropped overnight
A1c is 6.4% - Dose lowered to prevent recurrence hypoglycemia
DM ORTHOPHOTOGRAPHY TECHNICIAN eval appreciated 70/30 14U BID
sliding scale
Chronic pain: Continue Lyrica and duloxetine
Lower back pain
-lidocaine patches
-bengay-like cream
Poor Sleep
-improved with bedtime melatonin
DVT PPx Eliquis
Full code
Medically stable for discharge SNF rehab pending insurance auth and bed availability
Discussed with patient and pt's daughter Debra
I spent a total of 35 minutes with the patient or on the floor. More than 50% of this time involved counseling and coordination of care.
Anticipated Discharge: Within 24 hours
Subjective/Interval History
-
Date of Service: February 21, 2025
Reports feeling well. Rash continues to improve. Back bed rash noted. Desenex powder ordered. Otherwise no acute distress. Looking forward to SNF rehab.
Objective Data
-
Labs:
Laboratory Results
02/21/25
07:21
WBC Pending
Hgb Pending
Hct Pending
Plt Count Pending
Sodium Pending
Potassium Pending
Chloride Pending
Carbon Dioxide Pending
BUN Pending
Creatinine Pending
Glucose Pending
Calcium Pending
Vital Signs:
Vital Signs
Temp Pulse Resp BP Pulse Ox
98.7 F 78 20 136/62 95
02/20/25 23:00 02/20/25 23:00 02/20/25 23:00 02/20/25 23:00 02/20/25 23:00
I&O
02/20/25 02/21/25 02/22/25
06:59 06:59 06:59
Intake Total 480 / 480
Balance 480 / 480
--- NOTE | 2025-02-21 07:35 | PN.DE.MGMTRT ---
Insulin Management
- -
02/21/2025 Diabetes Management Consult Follow up
Patient admitted 02/12 with B/P problem, dizziness, lightheadedness, nausea, found to have UTI. Diabetes management consult 02/16. PMH GERD, HCL, diabetes. Prior to admission was taking 70/30 insulin 30 units with breakfast and 40 units with
dinner with a sliding scale and Trulicity weekly. A1C is 6.3% , cr .9, eGFR > 60.
Patient is awake alert and oriented able to discuss diabetes care.
Patient had episode of hypoglycemia, glucose 27 @ 3AM on 02/15.
70/30 insulin dose lowered to 14 units BID resumed 02/16. Glucose range 125 to 187, fasting 125 this AM, acceptable for patient age. Will make no change to 70/30 BID dose of 14 units with low corrective insulin.
A1C of 6.4 is too low for patient. Due to patient age it is acceptable to have a more liberal glucose range with occasional excursion. Will target less than 180.
Discussed with nurse.
Will follow
Diabetes History
- -
Type of Diabetes: 2 requiring insulin
Pre-Admission Diabetes Regimen
02/20/25
07:08
Creatinine 0.7
Lab Results
Hemoglobin A1c 6.4 % (4.0-5.6) H 02/13/25 07:00
Insulin Pump Settings
IP Diabetes Regimen
02/20/25 02/20/25 02/20/25
07:08 07:58 12:12
Glucose 106 H
POC Glucose 125 H 131 H
02/20/25 02/20/25
16:52 21:03
Glucose
POC Glucose 187 H 211 H
Patient Education
[2025-02-21] MEDS: LYRICA 25 MG PO (07:47)
[2025-02-21] MEDS: VITAMIN C 500 MG PO ×2 (07:47→19:52)
[2025-02-21] MEDS: CYMBALTA DELAYED RELEASE 60 MG PO (07:47)
[2025-02-21] MEDS: TOPROL XL 25 MG PO (07:48)
[2025-02-21] MEDS: ELIQUIS 5 MG PO ×2 (07:48→19:52)
[2025-02-21] MEDS: VITAMIN D3 (cholecalciferol) 50 MCG PO (07:48)
[2025-02-21 07:49] LABS: Glucose - Point of Care 127 mg/dl (70-99)
[2025-02-21] MEDS: ALDACTONE 25 MG PO (07:49)
[2025-02-21] MEDS: B COMPLEX w/VITAMIN C 1 CAPLET PO (07:49)
[2025-02-21] MEDS: ZYRTEC 10 MG PO (07:49)
[2025-02-21] MEDS: MAGNESIUM OXIDE 500 MG PO ×3 (07:49→21:36)
[2025-02-21] MEDS: BenGay-Like 1 APPLIC TOPICAL ×3 (07:50→21:36)
[2025-02-21] MEDS: LIDOCAINE 4% PATCH 2 PATCH TOPICAL (07:50)
[2025-02-21] MEDS: LASIX 20 MG PO (07:52)
[2025-02-21] MEDS: NOVOLOG MIX 70/30 FLEXPEN 14 UNITS SC ×2 (07:53→17:38)
[2025-02-21] MEDS: NOVOLOG FLEXPEN-LOW RESISTANCE SC (07:53)
[2025-02-21] MEDS: QUESTRAN 4 GRAM PO ×2 (07:54→21:36)
[2025-02-21 08:14] LABS: Hematocrit 34.1 % (37.0-47.0); Hemoglobin 11.1 g/dL (12.0-16.0); Mean Corp Hgb Conc. 32.6 g/dL (33.0-37.0); Mean Corpuscular Volume 99.4 fL (81.0-99.0); Platelet Count 218 10^3/uL (130-400); Red Cell Dist. Width 13.4 % (11.5-14.5)
[2025-02-21 08:39] LABS: Blood Urea Nitrogen 14 mg/dl (7-17); Calcium 8.3 mg/dl (8.4-10.2); Carbon Dioxide 32 mmol/L (22-30); Chloride 100 mmol/L (98-107); Estimated Creatinine Clearance 50 ml/min; Glucose 125 mg/dl (70-99); Magnesium 1.8 mg/dl (1.6-2.3); Potassium 4.2 mmol/L (3.5-5.1); Sodium 135 mmol/L (135-145); eGFR > 60.00
[2025-02-21] MEDS: TYLENOL 650 MG PO (09:18)
[2025-02-21] MEDS: DESENEX/MITRAZOL/ZEASORB 1 APPLIC TOPICAL ×2 (09:56→21:06)
[2025-02-21] MEDS: IMODIUM 2 MG PO (09:59)
[2025-02-21] MEDS: MAGNESIUM SULFATE 50 IV (09:59)
[2025-02-21 11:41] LABS: Glucose - Point of Care 250 mg/dl (70-99)
[2025-02-21] MEDS: NOVOLOG FLEXPEN-LOW RESISTANCE 3 UNITS SC (11:49)
--- NOTE | 2025-02-21 12:23 | CM ---
CM reviewed chart, patient seen bedside, discussed plan for discharge tomorrow to [facility], will require auth. Patient aware, agreeable to [facility] SNF. Patient will need updated PT/OT notes for SNF auth for tomorrow.
Plan; [facility] tomorrow, insurance auth required
[2025-02-21 15:00] VITALS: BP 114/63
[2025-02-21 17:02] LABS: Glucose - Point of Care 239 mg/dl (70-99)
[2025-02-21] MEDS: NOVOLOG FLEXPEN-LOW RESISTANCE 2 UNITS SC (17:40)
[2025-02-21] MEDS: REMOVE LIDOCAINE PATCH 2 PATCH REMOVE (19:53)
[2025-02-21 21:12] LABS: Glucose - Point of Care 212 mg/dl (70-99)
[2025-02-21] MEDS: LIPITOR 20 MG PO (21:36)
[2025-02-21] MEDS: MELATONIN 3 MG PO (21:36)
[2025-02-21 23:23] VITALS: BP 132/61
--- NOTE | 2025-02-22 06:49 | W.PN.HOSP.TC ---
Today's Communication/Plan
-
Discharge
Assessment / Plan
Assessment / Plan
Physical Exam
General: no acute distress, appears comfortable at this time
HEENT: Moist Mucous Membranes and PERRLA
Respiratory: Clear to Auscultation; Negative Wheezes, Rales or Rhonchi
Cardiac: Irregular Rhythm and Murmur
GI: Soft, Nontender, Normal Bowel Sounds, Hernia
Musculoskeletal: No Clubbing and No Edema, restricted range of motion Left shoulder d/t pain
Skin: Warm and Dry, itching rash on chest and abd fading/improving, also noted Left shoulder erythema/ecchymosis improving as well
Neuro: AOx3 conversant coherent
Psych: Calm
89F HTN, GERD, HLD, DM 2 presents with presyncope, found to have UTI and Afib.
TTE
CONCLUSIONS
Normal left ventricular size and function. Normal regional wall motion. Mild
concentric left ventricular hypertrophy. Left ventricular ejection fraction is
50-55% by visual assessment. Diastolic function indeterminate due to atrial
fibrillation.
Normal right ventricular size and function.
Moderate mitral regurgitation. Indexed LA volume is severely abnormal.
Aortic sclerosis without stenosis. Mild to moderate aortic regurgitation.
Compared to prior study dated 02/16/2013: mitral regurgitation was previously
mild and has worsened; aortic sclerosis and mild to moderate aortic
regurgitation are new.
UTI:
UA with greater than 100 WBC, 3+ LE
Reviewed previous culture data patient had Klebsiella most recently in urine, also in remote past Citrobacter and E. coli.
-received empiric IV Ceftriaxone, switched to unasyn, de-escalated to Augmentin d/c d/t possible adverse rxn rash, once fosfomycin completed abx treatment
-Urine cx pos for Aerococcus
-ID eval appreciated no need for further abx
Developed rash on chest and abd 02/17 non-itchy and painless (pictures above)
-possibly d/t high dose IV Mg infusion vs recent new abx Augmentin
-Augmentin discontinued as above
-rash continues to fade/improve
-itching prn calamine lotion, benadryl
Bed Rash
-Desenex powder BID
Left Shoulder Ecchymosis developed over weekend 02/17-02/18, restricted range of motion
CT Left shoulder noted no acute fractures/dislocation, noted severe subacromial-subdeltoid bursitis.
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
Coag neg staph, staph Capitis blood cultures likely contaminants
-blood cultures repeated 02/14 - NGTD
Hypomagnesemia
-monitor and replete as necessary
-Mag oxide 500 mg TID
Atrial fibrillation:
patient in and out of afib
-appreciate cardiology consult
-s/p TTE, results above
-new Eliquis, Metop XL, cont
HTN:
continue home BP meds Lasix and spironolactone
new Metoprolol as above
monitor and titrate antihypertensive regimen as necessary
DM 2:
Patient takes 70/30 40 units in a.m. and 30 units in p.m - was ordered for 30 units BID here then dropped overnight
A1c is 6.4% - Dose lowered to prevent recurrence hypoglycemia
DM [employer]ER eval appreciated 70/30 18U BID
sliding scale
Chronic pain: Continue Lyrica and duloxetine
Lower back pain
-lidocaine patches
-bengay-like cream
Poor Sleep
-improved with bedtime melatonin
DVT PPx Eliquis
Full code
Medically stable for discharge SNF rehab with outpatient follow up recommendations.
Discussed with patient and pt's daughter Debra
Total Time Preparing Discharge ___40____ minutes including examination of the patient, summary of the hospital stay, instructions for continuing care to all relevant caregivers; and preparation of discharge records, prescriptions, and referral
forms if necessary.
Anticipated Discharge: Today
Subjective/Interval History
-
Date of Service: February 22, 2025
no acute distress, sitting up comfortably chair. Overall reports feeling well. Denies new acute issues. Looking forward to SNF rehab.
Objective Data
-
Vital Signs:
Vital Signs
Temp Pulse Resp BP Pulse Ox
98.1 F 89 20 132/61 95
02/21/25 23:23 02/21/25 23:23 02/21/25 23:23 02/21/25 23:23 02/21/25 23:23
I&O
02/20/25 02/21/25 02/22/25
06:59 06:59 06:59
Intake Total 480 / 480 240 / 240
Balance 480 / 480 240 / 240
[2025-02-22 07:03] VITALS: BP 118/72
--- NOTE | 2025-02-22 07:57 | PN.DE.MGMTRT ---
Insulin Management
- -
02/22/2025 Diabetes Management Consult Follow up
Patient admitted 02/12 with B/P problem, dizziness, lightheadedness, nausea, found to have UTI. Diabetes management consult 02/16. PMH GERD, HCL, diabetes. Prior to admission was taking 70/30 insulin 30 units with breakfast and 40 units with
dinner with a sliding scale and Trulicity weekly. A1C is 6.3% , cr .9, eGFR > 60.
Patient is awake alert and oriented able to discuss diabetes care.
Patient had episode of hypoglycemia, glucose 27 @ 3AM on 02/15.
70/30 insulin dose lowered to 14 units BID resumed 02/16. Glucose range 127 to 250, fasting this AM, acceptable for patient age. Will increase 70/30 BID dose from 14 units to 18 units with low corrective insulin.
A1C of 6.4 is too low for patient. Due to patient age it is acceptable to have a more liberal glucose range with occasional excursion. Will target less than 180.
Discussed with nurse.
Will follow
Diabetes History
- -
Type of Diabetes: 2 requiring insulin
Pre-Admission Diabetes Regimen
02/21/25
07:21
Creatinine 0.7
Lab Results
Hemoglobin A1c 6.4 % (4.0-5.6) H 02/13/25 07:00
Insulin Pump Settings
IP Diabetes Regimen
02/21/25 02/21/25 02/21/25
07:21 11:35 17:01
Glucose 125 H
POC Glucose 250 H 239 H
02/21/25
21:11
Glucose
POC Glucose 212 H
Patient Education
[2025-02-22 08:05] LABS: Glucose - Point of Care 175 mg/dl (70-99)
[2025-02-22] MEDS: LIDOCAINE 4% PATCH 2 PATCH TOPICAL (08:16)
[2025-02-22] MEDS: VITAMIN D3 (cholecalciferol) 50 MCG PO (08:16)
[2025-02-22] MEDS: MAGNESIUM OXIDE 500 MG PO ×2 (08:16→15:20)
[2025-02-22] MEDS: VITAMIN C 500 MG PO (08:16)
[2025-02-22] MEDS: CYMBALTA DELAYED RELEASE 60 MG PO (08:16)
[2025-02-22] MEDS: B COMPLEX w/VITAMIN C 1 CAPLET PO (08:16)
[2025-02-22] MEDS: ELIQUIS 5 MG PO (08:16)
[2025-02-22] MEDS: TOPROL XL 25 MG PO (08:16)
[2025-02-22] MEDS: LYRICA 25 MG PO (08:16)
[2025-02-22] MEDS: ALDACTONE 25 MG PO (08:17)
[2025-02-22] MEDS: QUESTRAN 4 GRAM PO (08:17)
[2025-02-22] MEDS: BenGay-Like 1 APPLIC TOPICAL ×2 (08:18→15:24)
[2025-02-22] MEDS: DESENEX/MITRAZOL/ZEASORB 1 APPLIC TOPICAL (08:20)
[2025-02-22 08:31] LABS: Glucose - Point of Care 175 mg/dl (70-99)
[2025-02-22 09:14] VITALS: BP 136/74; PULSE 92; O2SAT 97
--- NOTE | 2025-02-22 09:27 | W.DCSUMMARY ---
Discharge Summary
Discharge Data
Date of Admission: 02/12/25
Date of Discharge: 02/22/25
-
Pending Results: No
Discharge Plan
-
Patient Disposition: [facility]NF
Discharge Diagnosis/Procedures: Urinary Tract Infection
Drug Rash due to Augmentin Allergy
Left shoulder chronic rotator cuff tear
Left Shoulder bursitis likely due to hemarthrosis causing shoulder Ecchymosis (resolving)
Hypomagnesemia
Atrial fibrillation
Hypertension
Diabetes
Chronic pain
Lower back pain
Bed rash
Condition: Fair
Diet: Diabetic, Carb Controlled
Activity: With assistance, As tolerated and With Walker
Driving Restrictions: Not until seen by your Dr
Bathing Restrictions: None
Blood Work: Repeat CBC BMP and Magnesium level with primary care provider in 1 week of discharge.
Other Services: PT and OT
Activity Restrictions/Additional Instructions:
Follow up with primary care provider in 1 week of discharge, Nephrology and Cardiology in 2-4 weeks of discharge, and Orthopedic in 1 month of discharge.
Bengay-like cream as needed for muscle pain prescribed
Calamine lotion prescribed as needed for Itching
Eliquis prescribed for stroke risk reduction atrial fibrillation
Metoprolol prescribed for rate control atrial fibrillation
Magnesium supplementation prescribed for chronic low levels
Melatonin prescribed as needed for sleep
Desenex powder prescribed for back bed rash
70-30 insulin combination reduced to 18 units twice a day to minimize risk of hypoglycemia
Please take medications a prescribed/recommended and follow up with primary care provider and/or other healthcare provider involved in your care for refills and/or further adjustment to your medication regimen as necessary.
Referrals:
Arun Garcia MD [Active, Orthopedics] - in one month
David De Guzman DO [Active, Cardiology] - in two to four weeks
Devin Ennis DO [Family Provider] - in one week
Vadim Raines MD [Active, Nephrology]
Referral Note: Chronic Hypomagnesemia
Prescriptions:
New
Eliquis 5 mg Tablet
5 mg PO BID Qty: 60 11RF
metoprolol succinate 25 mg Tablet Extended Release 24 Hr
25 mg PO DAILY Qty: 30 11RF
Analgesic [place] (m.salic-menth) 15-10 % Cream
1 applic topical TID PRN (Reason: muscle pain) Qty: 85 0RF
calamine-zinc oxide 8-8 % Lotion
1 applic topical TIDPRN PRN (Reason: itching) Qty: 2124 0RF
miconazole nitrate [Miconazorb AF] 2 % Powder
1 applic topical BID 7 Days Qty: 85 0RF
Rx Instructions:
Back
magnesium oxide 500 mg magnesium Tablet
500 mg PO TID Qty: 90 0RF
melatonin 3 mg Tablet
3 mg PO HS PRN (Reason: Sleep) Qty: 30 0RF
Continued
simvastatin 40 MG tablet
40 mg PO HS
Calazime Ointment
1 applic topical DAILYPRN PRN (Reason: anel-rectal area)
lidocaine 4 % Adhesive Patch,Medicated
1 patch TOPICAL DAILY
polyethylene glycol 3350 [Miralax] 17 gram Powder In Packet
17 g PO DAILYPRN PRN (Reason: constipation)
cetirizine 10 mg Tablet
10 mg PO DAILY
loperamide [Imodium A-D] 2 mg Tablet
2 mg PO Q6HPRN PRN (Reason: diarrhea)
mineral oil-hydrophil petrolat Ointment
1 applic TOPICAL DAILYPRN PRN (Reason: dry skin)
spironolactone 25 mg Tablet
25 mg PO DAILY
methenamine hippurate 1 gram Tablet
1 g PO BID
ascorbic acid (vitamin C) [Vitamin C] 500 mg Tablet
500 mg PO BID
diphenhydramine HCl [Benadryl] 25 mg Capsule
25 mg PO Q6HPRN PRN (Reason: allergies)
vitamin B complex Tablet
1 tab PO DAILY
furosemide [Lasix] 20 mg Tablet
20 mg PO MOWEFR
nystatin 100,000 unit/gram Powder
1 applic TOPICAL DAILYPRN PRN (Reason: fungal rash)
azelastine 137 mcg (0.1 %) [place],Non-Aerosol
1 spray INTRANASAL BID
dextromethorphan-guaifenesin [Mucinex Fast-Max DM Max] 5-100 mg/5 mL Liquid
20 ml PO Q4HPRN PRN (Reason: congestion)
ondansetron 4 mg Tablet,Disintegrating
4 mg PO Q8HPRN PRN (Reason: nausea/vomiting)
fluticasone propionate 50 mcg/actuation Gibson,Suspension
1 spray INTRANASAL HS
colestipol 1 gram Tablet
1 g PO AC
insulin lispro [Humalog KwikPen Insulin] 100 unit/mL Insulin Pen
0 sliding scale dose SC DIRECTED
Rx Instructions:
if 150-200 = 0 units; 201-250 = 2 units; 251-300 = 4 units; 301-350 = 6 units; 351-400 = 8 units; call MD if BS is <60 or >450.
Saccharomyces boulardii [Florastor] 250 mg Capsule
250 mg PO BID
pregabalin [Lyrica] 25 mg Capsule
25 mg PO DAILY
cholecalciferol (vitamin D3) 50 mcg (2,000 unit) Capsule
50 mcg PO DAILY
Icy Hot Power 16 % Gel
1 ea TOPICAL HS
coQ10 (ubiquinol) 200 mg Capsule
200 mg PO HS
Trulicity 0.75 mg/0.5 mL Pen Injector
0.75 mg SC FR
duloxetine 60 mg Capsule, Delayed Rel Sprinkle
60 mg PO DAILY
cholestyramine 4 gram Powder In Packet
4 g PO BID
acetaminophen 325 MG tablet
650 mg PO Q4HPRN PRN (Reason: mild pain)
cranberry 450 mg Tablet
450 mg PO DAILY
Changed
Humulin 70/30 U-100 KwikPen 100 unit/mL (70-30) Insulin Pen
18 unit SC BID Qty: 0 0RF
Discontinued
Humulin 70/30 U-100 KwikPen 100 unit/mL (70-30) Insulin Pen
40 unit SC QPM
pregabalin [Lyrica] 50 mg Capsule
50 mg PO BID
Discharge Orders:
Discharge Patient (As Directed); Ordered 02/22/25
Ordered By: Josefina Mckinney
Discharge Date and Time
Print Language: GREEK
[2025-02-22 09:29] VITALS: BP 136/74; PULSE 92; O2SAT 97
[2025-02-22] MEDS: TYLENOL 650 MG PO (09:44)
[2025-02-22] MEDS: ZYRTEC 10 MG PO (09:44)
[2025-02-22] MEDS: NOVOLOG FLEXPEN-LOW RESISTANCE 1 UNITS SC (09:45)
[2025-02-22] MEDS: NOVOLOG MIX 70/30 FLEXPEN 18 UNITS SC (09:46)
[2025-02-22 11:43] LABS: Glucose - Point of Care 249 mg/dl (70-99)
--- NOTE | 2025-02-22 12:25 | CM ---
Addendum entered by Negin Tom 02/22/25 12:51:
[facility]
Report: [phone]

Original Note:
CM reviewed chart, patient seen bedside, discussed plan for [facility]. IMM verbally reviewed, provided with copy, placed in chart. CM spoke with Nessa from [facility], auth approved 02/22-02/27, next review 02/27, auth #[id number], ambulance auth
#[id number]. Updates to [facility] at [facility].
VM left for patients daughter, Debra, with transport time. CM will continue to follow for all discharge planning needs.
Plan; [facility] SNF, ambulance transport 4:30 p.m.
[2025-02-22] MEDS: NOVOLOG FLEXPEN-LOW RESISTANCE 2 UNITS SC (12:40)
[2025-02-22 15:00] VITALS: BP 134/67
== END 2025-02-22 16:48 | DRG 690 ==
LOC: 4 WEST ACU 23:32
PROVIDERS: Physician Assistant Medical; Student in an Organized Health Care Education/Training Program; ADMITTING PHYSICIAN Internal Medicine; ATTENDING PHYSICIAN Internal Medicine; CONSULT PHYSICIAN Internal Medicine Infectious Disease; CONSULT PHYSICIAN Orthopaedic Surgery; EMERGENCY PHYSICIAN Emergency Medicine; FAMILY PHYSICIAN Internal Medicine; OTHER PHYSICIAN Internal Medicine Cardiovascular Disease
DX: N39.0 Urinary tract infection, site not specified (principal); M75.52 Bursitis of left shoulder; E83.42 Hypomagnesemia; I48.0 Paroxysmal atrial fibrillation; E11.9 Type 2 diabetes mellitus without complications; I10 Essential (primary) hypertension; G89.29 Other chronic pain; Z96.651 Presence of right artificial knee joint; Z88.1 Allergy status to other antibiotic agents; K21.9 Gastro-esophageal reflux disease without esophagitis; I08.0 Rheumatic disorders of both mitral and aortic valves; I70.0 Atherosclerosis of aorta; B36.9 Superficial mycosis, unspecified; E78.00 Pure hypercholesterolemia, unspecified; E87.6 Hypokalemia; K22.2 Esophageal obstruction; Z80.0 Family history of malignant neoplasm of digestive organs; Z83.3 Family history of diabetes mellitus; Z79.899 Other long term (current) drug therapy; Z79.4 Long term (current) use of insulin; F41.9 Anxiety disorder, unspecified; J98.4 Other disorders of lung; K58.9 Irritable bowel syndrome, unspecified; L27.0 Generalized skin eruption due to drugs and medicaments taken internally; M19.90 Unspecified osteoarthritis, unspecified site; Z88.0 Allergy status to penicillin
CPT/HCPCS: 71046; 73200; 80048; 80053; 81003; 81015; 82607; 82728; 82746; 82962; 83036; 83540; 83550; 83735; 84100; 84443; 84484; 85025; 85027; 87040; 87070; 87077; 87086; 87147; 87150; 87205; 93005; 93306; 93971; 96361; 96374; 97110; 97163; 97167; 97530; 97535; 99285

== ENCOUNTER → 2025-02-26 09:35 | Outpatient (REF) | payer OTHER, SELFPAY ==
[2025-02-26 11:38] LABS: Hematocrit 37.4 % (37.0-47.0); Hemoglobin 12.1 g/dL (12.0-16.0); Mean Corp Hgb Conc. 32.4 g/dL (33.0-37.0); Mean Corpuscular Volume 100.8 fL (81.0-99.0); Platelet Count 270 10^3/uL (130-400); Red Cell Dist. Width 13.3 % (11.5-14.5)
[2025-02-26 12:05] LABS: Blood Urea Nitrogen 13 mg/dl (7-17); Calcium 8.4 mg/dl (8.4-10.2); Carbon Dioxide 30 mmol/L (22-30); Chloride 104 mmol/L (98-107); Glucose 32 mg/dl (70-99); Potassium 3.7 mmol/L (3.5-5.1); Sodium 138 mmol/L (135-145); eGFR > 60.00
== END ==
LOC: OLABP 09:35
PROVIDERS: ATTENDING PHYSICIAN Family Medicine
DX: M75.52 Bursitis of left shoulder (principal); N39.0 Urinary tract infection, site not specified; I48.0 Paroxysmal atrial fibrillation; B96.1 Klebsiella pneumoniae [K. pneumoniae] as the cause of diseases classified elsewhere; T36.8X5A Adverse effect of other systemic antibiotics, initial encounter; E83.40 Disorders of magnesium metabolism, unspecified
CPT/HCPCS: 36415; 80048; 85027

== ENCOUNTER → 2025-03-10 17:02 | Outpatient (REF) | payer OTHER, SELFPAY ==
[2025-03-10 17:34] LABS: ALT (SGPT) 13 U/L (0-35); AST (SGOT) 23 U/L (14-36); Albumin 3.0 g/dl (3.5-5.0); Alkaline Phosphatase 53 U/L (38-126); Blood Urea Nitrogen 15 mg/dl (7-17); Calcium 8.7 mg/dl (8.4-10.2); Carbon Dioxide 29 mmol/L (22-30); Chloride 103 mmol/L (98-107); Glucose 200 mg/dl (70-99); Potassium 4.3 mmol/L (3.5-5.1); Sodium 136 mmol/L (135-145); Total Protein 6.0 g/dl (6.3-8.2); eGFR > 60.00
[2025-03-10 17:36] LABS: Hematocrit 33.8 % (37.0-47.0); Hemoglobin 10.8 g/dL (12.0-16.0); Mean Corp Hgb Conc. 32.0 g/dL (33.0-37.0); Mean Corpuscular Volume 102.4 fL (81.0-99.0); Nucleated Red Blood Cells % 0 %; Platelet Count 224 10^3/uL (130-400); Red Cell Dist. Width 14.1 % (11.5-14.5)
== END ==
LOC: OLAB 17:02
DX: M75.52 Bursitis of left shoulder (principal); N39.0 Urinary tract infection, site not specified; I48.0 Paroxysmal atrial fibrillation; B96.1 Klebsiella pneumoniae [K. pneumoniae] as the cause of diseases classified elsewhere; T36.8X5A Adverse effect of other systemic antibiotics, initial encounter; E83.40 Disorders of magnesium metabolism, unspecified
CPT/HCPCS: 80053; 85025

== ENCOUNTER → 2025-03-12 17:21 | Outpatient (REF) | payer OTHER, SELFPAY ==
[2025-03-12 17:50] LABS: Urine Character Cloudy (Clear)
[2025-03-12 17:57] LABS: Urine Red Blood Cell >100 /HPF (0-2)
[2025-03-12 17:58] LABS: Urine White Cell 50-60 /HPF (0-5)
== END ==
LOC: OLABP 17:21
PROVIDERS: ATTENDING PHYSICIAN Family Medicine
DX: M75.52 Bursitis of left shoulder (principal); N39.0 Urinary tract infection, site not specified; I48.0 Paroxysmal atrial fibrillation; B96.1 Klebsiella pneumoniae [K. pneumoniae] as the cause of diseases classified elsewhere; T36.8X5A Adverse effect of other systemic antibiotics, initial encounter; E83.40 Disorders of magnesium metabolism, unspecified
CPT/HCPCS: 81003; 81015; 87086

== ENCOUNTER → 2025-03-14 10:12 | Outpatient (REF) | payer OTHER, SELFPAY ==
[2025-03-14 10:47] LABS: Hematocrit 33.4 % (37.0-47.0); Hemoglobin 10.3 g/dL (12.0-16.0); Mean Corp Hgb Conc. 30.8 g/dL (33.0-37.0); Mean Corpuscular Volume 103.1 fL (81.0-99.0); Nucleated Red Blood Cells % 0 %; Platelet Count 182 10^3/uL (130-400); Red Cell Dist. Width 14.0 % (11.5-14.5)
[2025-03-14 10:56] LABS: Blood Urea Nitrogen 18 mg/dl (7-17); Calcium 8.5 mg/dl (8.4-10.2); Carbon Dioxide 27 mmol/L (22-30); Chloride 108 mmol/L (98-107); Glucose 121 mg/dl (70-99); Potassium 4.8 mmol/L (3.5-5.1); Sodium 137 mmol/L (135-145); eGFR > 60.00
== END ==
LOC: OLABP 10:12
PROVIDERS: ATTENDING PHYSICIAN Family Medicine
DX: M75.52 Bursitis of left shoulder (principal); I48.0 Paroxysmal atrial fibrillation; B96.1 Klebsiella pneumoniae [K. pneumoniae] as the cause of diseases classified elsewhere; T36.8X5A Adverse effect of other systemic antibiotics, initial encounter; E83.40 Disorders of magnesium metabolism, unspecified
CPT/HCPCS: 36415; 80048; 85025

== ENCOUNTER 2025-07-18 10:37 | Emergency (ER) | payer OTHER, SELFPAY ==
[2025-07-18 10:41] VITALS: BP 136/92
[2025-07-18 10:42] VITALS: BMI 34.0
--- NOTE | 2025-07-18 10:50 | ED.GENMED ---
History of Present Illness
<South White PA-C - Last Filed: 07/20/25 00:55>
General
Chief Complaint: Back Pain
Source: patient
Exam Limitations: none
Time Seen by Provider: 07/18/25 10:39
History of Present Illness
History of Present Illness:
89 year old female presents complaining of lower back pain that radiates down the posterior left leg. She is from [facility]. Typically she is ambulatory with a walker but over the past couple days, she has been bedbound. No bowel or
bladder dysfunction. The pain radiates down the posterior leg into the thigh. No fevers. No known injury. No other complaints at this time
Past History
<South White PA-C - Last Filed: 07/20/25 00:55>
Past History
ED Past Medical History: GERD, HTN, Hypercholesterolemia, NIDDM and Other (History of neck and back pain, hiatal hernia, irritable bowel syndrome, diverticulosis, loss of urination control, arthritis)
ED Past Surgical History: Bowel resection (Colon resection for GI bleed) and Orthopedic (Right knee replacement, laminectomy with fusion, left carpal tunnel surgery)
Social History
Tobacco: Non-smoker
Alcohol: None
Personal:
Living: with family
Employment: Retired
Family History
Family History: Unable to obtain
Phy Exam
<LEXY Frederick Last Filed: 07/20/25 00:55>
Physical Exam
Physical Exam:
General: Well-appearing female no acute respiratory
HEENT: Normal cephalic atraumatic
Heart: Tachycardic but regular
Lungs: Clear no wheeze
Musculoskeletal exam: Patient is tender over the lumbosacral junction over the midline. Good range of motion to the lower extremities
Neurologic exam: Good sensation bilateral lower extremities
Skin is warm no rash
Course
<South White PA-C - Last Filed: 07/20/25 00:55>
Orders/Labs/Results
Orders:
Orders
07/18/25 10:48
Acetaminophen [Tylenol] 1,000 mg PO NOW STA
Dexamethasone Sod Phosphate [Decadron] 10 mg IV NOW STA
diazePAM [Valium Injection] 2 mg IV NOW STA
CR Lumbar Spine 2 Or 3 Views Urgent
Comment:
Reason For Exam: back pain
07/18/25 12:44
Case Management Consult ONCE
Case Management Consult: Discharge Planning
PT Consult [Pt Eval And Treat] Urgent
Activity Level: Ambulate
Abnormal Lab Results
07/18/25
13:56
POC Glucose 157 H mg/dl
(70-99)
Vital Signs
Initial and Last Documented VS:
Initial Vital Signs
Temp Pulse Resp BP Pulse Ox
98.0 F 97 18 136/92 96
07/18/25 10:41 07/18/25 10:41 07/18/25 10:41 07/18/25 10:41 07/18/25 10:41
Last Documented Vital Signs
Temp Pulse Resp BP Pulse Ox
98.0 F 75 19 126/73 97
07/18/25 10:41 07/18/25 11:45 07/18/25 11:45 07/18/25 11:00 07/18/25 11:30
<Zafar Zavala DO - Last Filed: 07/18/25 13:54>
Orders/Labs/Results
Orders:
Orders
07/18/25 10:48
Acetaminophen [Tylenol] 1,000 mg PO NOW STA
Dexamethasone Sod Phosphate [Decadron] 10 mg IV NOW STA
diazePAM [Valium Injection] 2 mg IV NOW STA
CR Lumbar Spine 2 Or 3 Views Urgent
Comment:
Reason For Exam: back pain
07/18/25 12:44
Case Management Consult ONCE
Case Management Consult: Discharge Planning
PT Consult [Pt Eval And Treat] Urgent
Activity Level: Ambulate
Abnormal Lab Results
07/18/25
13:56
POC Glucose 157 H mg/dl
(70-99)
Vital Signs
Initial and Last Documented VS:
Initial Vital Signs
Temp Pulse Resp BP Pulse Ox
98.0 F 97 18 136/92 96
07/18/25 10:41 07/18/25 10:41 07/18/25 10:41 07/18/25 10:41 07/18/25 10:41
Last Documented Vital Signs
Temp Pulse Resp BP Pulse Ox
98.0 F 75 19 126/73 97
07/18/25 10:41 07/18/25 11:45 07/18/25 11:45 07/18/25 11:00 07/18/25 11:30
<South White PA-C - Last Filed: 07/20/25 00:55>
MDM/Problems Addressed
Differential Diagnosis Includes:
Lower back pain rating down the left leg. No red flags to suggest cauda equina. Will check x-ray for compression fracture, but consider radiculopathy. Pain is preventing the patient from ambulating. Will treat symptoms.
<South White PA-C - Last Filed: 07/20/25 00:55>
*Pulse Oximetry
SaO2: 96
Oxygen Mode of Delivery: Room air
Patient hypoxic: no
*Critical Care Note
Total Time (30-74mins, 75-104mins- exclusive of procedures): Not Applicable
<South White PA-C - Last Filed: 07/20/25 00:55>
Update Note
Update Note:
Patient with minimal relief after 2 mg of Valium Tylenol and Decadron here. X-ray shows no acute finding. I suspect radiculopathy. PT consulted case management consulted. Will attempt to place her into the longterm portion at [facility]
[place]. Referrals currently being sent by case management
ED Attending Note
<South White PA-C - Last Filed: 07/20/25 00:55>
-
Portions of this chart may have been created with voice recognition software.� Occasional wrong word or��sound alike� substitutions may have occurred due to the inherent limitations of voice recognition software.
<Zafar Zavala DO - Last Filed: 07/18/25 13:54>
ED Attending Note
Patient seen and examined by attending physician: Yes
I performed the substantive portion of visit, reviewed & personally made and approve the management plan that is documented in note by myself or TARAH.: Yes
ED Attending Note:
I evaluated the patient at bedside. The patient appears generally weak and debilitated. She could not really work with PT while in the ED. She resides at a place independently that does have higher level of care option. Care management is
looking into this. Will also check blood sugar. She is a diabetic.
Discharge Plan
Departure
Patient Disposition: Skilled Nursing/SNF
Date of Disposition: 07/18/25
Time of Disposition: 14:28
Discharge Problem:
Acute lumbar radiculopathy
Prescriptions:
No Action
simvastatin 40 MG tablet
40 mg PO HS
lidocaine 4 % Adhesive Patch,Medicated
2 patch TOPICAL DAILY
polyethylene glycol 3350 [Miralax] 17 gram Powder In Packet
17 g PO DAILYPRN PRN (Reason: constipation)
cetirizine 10 mg Tablet
10 mg PO DAILY
mineral oil-hydrophil petrolat Ointment
1 applic TOPICAL DAILYPRN PRN (Reason: dry skin)
spironolactone 25 mg Tablet
25 mg PO DAILY
methenamine hippurate 1 gram Tablet
1 g PO BID
ascorbic acid (vitamin C) [Vitamin C] 500 mg Tablet
500 mg PO BID
diphenhydramine HCl [Benadryl] 25 mg Capsule
25 mg PO Q6HPRN PRN (Reason: allergies)
vitamin B complex Tablet
1 tab PO DAILY
furosemide [Lasix] 20 mg Tablet
40 mg PO DAILY
nystatin 100,000 unit/gram Powder
1 applic TOPICAL BID
azelastine 137 mcg (0.1 %) Urs[place],Non-Aerosol
1 spray INTRANASAL BID
dextromethorphan-guaifenesin [Mucinex Fast-Max DM Max] 5-100 mg/5 mL Liquid
20 ml PO Q4HPRN PRN (Reason: congestion)
ondansetron 4 mg Tablet,Disintegrating
4 mg PO Q8HPRN PRN (Reason: nausea/vomiting)
fluticasone propionate 50 mcg/actuation Ursa,Suspension
1 spray INTRANASAL HS
colestipol 1 gram Tablet
1 g PO AC
insulin lispro [Humalog KwikPen Insulin] 100 unit/mL Insulin Pen
0 sliding scale dose SC DIRECTED
Rx Instructions:
201-250=2 units, 251-300=4 units, 301-350=6 units, 351-400=8 units
Saccharomyces boulardii [Florastor] 250 mg Capsule
250 mg PO BID
pregabalin [Lyrica] 25 mg Capsule
50 mg PO QPM
cholecalciferol (vitamin D3) 50 mcg (2,000 unit) Capsule
50 mcg PO DAILY
coQ10 (ubiquinol) 200 mg Capsule
200 mg PO HS
Trulicity 0.75 mg/0.5 mL Pen Injector
0.75 mg SC FR
cholestyramine 4 gram Powder In Packet
4 g PO BID
acetaminophen 325 MG tablet
650 mg PO TID
cranberry 450 mg Tablet
450 mg PO DAILY
Eliquis 5 mg Tablet
5 mg PO BID Qty: 60 11RF
metoprolol succinate 25 mg Tablet Extended Release 24 Hr
25 mg PO DAILY Qty: 30 11RF
Analgesic [place] (m.salic-menth) 15-10 % Cream
1 applic topical TID PRN (Reason: muscle pain) Qty: 85 0RF
miconazole nitrate [Miconazorb AF] 2 % Powder
1 applic topical BID 7 Days Qty: 85 0RF
Rx Instructions:
Back
magnesium oxide 500 mg magnesium Tablet
500 mg PO TID Qty: 90 0RF
melatonin 3 mg Tablet
3 mg PO HS PRN (Reason: Sleep) Qty: 30 0RF
methocarbamol 500 mg Tablet
500 mg PO BID
Rx Instructions:
start 07/15/25 end date 07/22/25
tizanidine 2 mg Tablet
2 mg PO BID
alprazolam 1 mg Tablet
1 mg PO HS
ondansetron HCl 4 mg Tablet
4 mg PO Q6H PRN (Reason: n/v)
tramadol 50 mg Tablet
50 mg PO TID
Rx Instructions:
start date 07/17/25 end date 08/14/25 MKO
diphenhydramine HCl [Benadryl] 25 mg Capsule
25 mg PO Q6HPRN PRN (Reason: allergies)
gabapentin 100 mg Capsule
100 mg PO TID
Visbiome 112.5 billion cell Capsule
1 cap PO BID
Creon 12,000-38,000 -60,000 unit Capsule,Delayed Release(Dr/Ec)
1 cap PO TID
Humulin 70/30 U-100 KwikPen 100 unit/mL (70-30) insulin pen
15 unit SC BID
calamine-zinc oxide 8-8 % lotion
1 applic topical HS
Referrals:
Jew,Devin M., DO [Family Provider]
Interventions
Interventions:
*General Assessment Last Done: 07/18/25 18:51
*Neglect/Abuse Screening Last Done: 07/18/25 17:30
*ED COVID-19 Vaccine History Last Done: 07/18/25 18:52
*ED Influenza Vaccine History Last Done: 07/18/25 18:[address]
[facility] Fall Risk Assessment Tool Last Done: 07/18/25 17:30
*Risk Screen - Suicide (C-SSRS) Last Done: 07/18/25 18:51
*Nursing Disposition Last Done: 07/18/25 18:51
ED-Musculoskeletal Assessment Last Done: 07/18/25 17:30
Discharge Date and Time
Discharge Date/Time: 07/18/25 18:52
Print Language: HAITIAN
[2025-07-18 11:00] VITALS: BP 126/73
[2025-07-18] MEDS: TYLENOL 1000 MG PO (12:29)
[2025-07-18] MEDS: VALIUM INJECTION 2 MG IV (12:30)
[2025-07-18] MEDS: DECADRON 10 MG IV (12:30)
[2025-07-18 13:58] LABS: Glucose - Point of Care 157 mg/dl (70-99)
--- NOTE | 2025-07-18 14:00 | EDCM ---
Addendum entered by Michell Galindo 07/18/25 17:19:
Called [facility] , spoke to Destiny, authorization [id number], starting 07/18, next review 07/23. Acute Care ambulance auth obtained, #[id number], given to Ty. Transport arranged for 7pm. Clinicals faxed to [facility],
Report number [phone]. Pt and daughter updated, Alice MCCARTHY and Katelynn UP also updated.
Addendum entered by Michell Galindo 07/18/25 14:25:
Spoke to Li at [facility], informed her of SNF referral. She will try to make a bed for her and get back to me shortly. [facility] updated.
Addendum entered by Michell Galindo 07/18/25 14:20:
Referral sent to [facility] via [facility].
Original Note:
Received consult and met with pt and daughter bedside in ED. Pt resides in Personal care apt at [facility] in [place]. Has been ther several years.
Needs assistance with ADLs, independent in personal care. Normally ambulates with RW but has been bedbound for past several days due to back pain. She normally uses wheelchair for longer distances.
PMH includes GERD, HTN, elevated cholesterol, NIDDM, Neck and back pain, hiatel hernia, IBS, diverticulosis ad R knee replacement.
Hx [place] after admission in January.
PCP: Devin Ennis
Pharmacy: [facility]
Seen by Tammy from PT who is recommending SNF, pt and family agreeable to referral to [facility] SNF.
Will send referral through [facility] once PT note is complete.
== END 2025-07-18 18:52 ==
LOC: EMR 10:37
PROVIDERS: EMERGENCY PHYSICIAN Emergency Medicine; FAMILY PHYSICIAN Internal Medicine
DX: M54.16 Radiculopathy, lumbar region (principal); E11.9 Type 2 diabetes mellitus without complications; I10 Essential (primary) hypertension; E78.00 Pure hypercholesterolemia, unspecified; K21.9 Gastro-esophageal reflux disease without esophagitis; K44.9 Diaphragmatic hernia without obstruction or gangrene; K58.9 Irritable bowel syndrome, unspecified; M19.90 Unspecified osteoarthritis, unspecified site; Z79.85 Long-term (current) use of injectable non-insulin antidiabetic drugs; Z79.4 Long term (current) use of insulin; Z96.651 Presence of right artificial knee joint
CPT/HCPCS: 99284; 96374; 96375; 72100; 82962